=== PATIENT | female | born 1940 | race Caucasian/White ===

== ENCOUNTER 2017-07-04 07:17 | Inpatient (IN) | payer MEDICARE ==
[~2017-07-04] VITALS: Ht 167.6 cm; Wt 52.6 kg
[2017-07-04] VITALS (14 sets, daily range): BP systolic 70–100; BP diastolic 29–60; PULSE 60–82; RESP 14–18; O2SAT 95–100
[~2017-07-04 07:17] MED LIST: MULT-64 PO
--- NOTE | 2017-07-04 07:26 | ED.REPORT ---
HPI-General Illness Date of Service Jul 04, 2017 ED Provider: Kinsey Hernandez Patient is a 76 year old female with a hx of pansensitive Escherichia coli UTI diagnosed June 23 treated with Septra with complete resolution of symptoms. Presents to the ED complaining of hematuria onset last night. Associated symptoms include generalized weakness. Per , she is not experiencing increased confusion, fever, abdominal pain, back pain, or any other symptoms. She denies dizziness. She was seen at last night and placed on Septra again. Her urine dip had trace leukocytes, proteins, and some blood but was nitrite negative. Patient takes 325 mg ASA daily. Nursing Notes Stated Complaint: BLOOD IN URINE Chief Complaint: General Complaint Nursing Notes Reviewed: Yes Allergies: Coded Allergies: Pork (Verified Allergy, Unknown, 07/04/17) banana (Verified Allergy, Unknown, 07/04/17) peanut (Verified Allergy, Unknown, 07/04/17) shellfish derived (Verified Allergy, Unknown, 07/04/17) tree nut (Verified Allergy, Unknown, 07/04/17) wheat (Verified Allergy, Unknown, 07/04/17) Scheduled Aspirin (Aspirin) 325 Mg Tablet 325 MG PO DAILY Bifidobacterium Infantis (Digestive Probiotic) 1 Each Capsule 1 EACH PO DAILY Multivits-Min/FA/Lycopene/Lut (Centrum Silver Tablet) 1 Each Tablet 1 EACH PO DAILY Sulfamethoxazole/Trimeth 800-160 mg (Bactrim DS) 1 Each Tablet 1 EACH PO BID x 7 days General Time Seen by MD: 07:25 Chief Complaint Other (Hematuria ) Hx Obtained From: Patient, Spouse Arrived By: Walk-in Sudden in Onset?: Yes Onset Occurred: Yesterday Symptom Duration: Since onset Severity: Current: No pain currently Severity: Maximum: No pain Recent Healthcare: Recent doctor visit Similar Sx Previous: Yes Past Medical History Past Medical History Recent UTI Past Surgical History Bladder cyst removal herniated lumbar disc repair angioplasty bilat legs Smoking History Former Smoker, Smoker Current Status UNK Social History Other Social History: Ambulatory Status Independent Review of Systems +hypotensive Full Review of Systems Constitutional: Reports: Weakness - generalized, Denies: Fever Respiratory: Denies: Shortness of breath GI: Denies: Abdominal pain Female: Reports: Hematuria Musculoskeletal: Denies: Back pain Skin: Reports Diaphoresis Neurologic: Denies: Confusion, Dizziness Complete sys rev & neg: except as marked. Physical Exam Vital Signs Vital Signs Date Time Temp Pulse Resp B/P Pulse Ox O2 Delivery O2 Flow Rate FiO2 07/04/17 11:30 73 17 83/44 97 Room Air 07/04/17 10:30 69 16 99 Room Air 07/04/17 10:00 78 17 100 Room Air 07/04/17 09:30 82 18 70/29 100 Room Air 07/04/17 09:00 74 17 88/58 100 Room Air 07/04/17 08:30 74 16 82/38 100 Room Air 07/04/17 08:15 73 17 88/55 100 Room Air 07/04/17 08:00 70 16 83/56 100 Room Air 07/04/17 07:45 69 18 100/45 100 Room Air 07/04/17 07:25 36.0 60 16 86/60 95 Room Air Initial VS: Reviewed, Vital signs abnormal Head / Eyes: Atraumatic, Normocephalic Neck: Full range of motion Skin: Warm, Dry Neurologic: Alert, Oriented, Nonfocal General/Constitutional: Awake, Alert, No acute distress Respiratory / Chest: Atraumatic, Breath sounds NL, Breath sounds = bilat, No respiratory distress Cardiovascular: Heart rate NL, Regular rhythm, Heart sounds NL Abdomen: Atraumatic, Soft Lower abdominal guarding with some suprapubic fullness post-void Back: No CVA tenderness Female Genitourinary: Sales Representative Business Courses present Interpretation & Diagnostics Interpretation & Diagnostics: Acute anemia. Comparison is 2009 with a hematocrit at 42. Lab Results Interpretation Result Diagram: 07/04/17 1345 07/04/17 0744 Test 07/04/17 07:40 07/04/17 07:44 Prothrombin Time 13.6sec (8.1-12.5) Prothromb Time International Ratio 1.26ratio White Blood Count 7.5th/mm3 (3.8-10.1) Red Blood Count 3.48mil/mm3 (3.90-5.20) Mean Corpuscular Volume 88.8fL (81-100) Mean Corpuscular Hemoglobin 29.3pg (27.0-35.0) Mean Corpuscular Hemoglobin Concent 33.0% (32.0-37.0) Red Cell Distribution Width 14.0% (12.3-15.4) Platelet Count 242bil/L (150-400) Neutrophils (%) (Auto) 72.4% (40-74) Lymphocytes (%) (Auto) 18.7% (14-46) Monocytes (%) (Auto) 7.4% (4-12) Eosinophils (%) (Auto) 0.7% (0-5) Basophils (%) (Auto) 0.7% (0-3) Sodium Level 136mEq/L (134-144) Potassium Level 4.4mEq/L (3.5-5.2) Chloride Level 100mEq/L (97-108) Carbon Dioxide Level 19mmol/L (18-29) Blood Urea Nitrogen 11mg/dL (8-27) Creatinine 0.75mg/dL (0.57-1.00) Estimat Glomerular Filtration Rate 107mL/min (>59) Glucose Level 146mg/dL (60-99) Calcium Level 9.6mg/dL (8.5-10.1) Phosphorus Level 3.2mg/dL (2.5-4.9) Magnesium Level 1.8mg/dL (1.6-2.6) Total Bilirubin 0.5mg/dL (0.0-1.2) Aspartate Amino Transf (AST/SGOT) 45U/L (0-50) Alanine Aminotransferase (ALT/SGPT) 44U/L (0-32) Alkaline Phosphatase 123U/L (25-165) Troponin T 0.010ug/L (0.0-0.011) Total Protein 6.2g/dL (6.4-8.4) Albumin 3.8g/dL (3.4-5.0) Procalcitonin 0.03ng/mL (0.00-0.08) ECG Interpretation ECG Interpretation: Sinus rate 65 Probable L atrial enlargement Incomplete RBBB No ischemia Time: 07:50 Interpreted by: ED physician CT Abd / Pelvis Interpretation IMPRESSION: Large heterogeneous bladder mass which could represent hematoma however there is superimposed left posterior focus of increased attenuation which is suspicious for enhancing bladder wall mass/malignancy. Recommend further evaluation with cystoscopy. Minimal intrahepatic bile duct dilatation. Please correlate clinically with LFTs. Cholelithiasis. Numerous subcentimeter pancreatic cystic foci, not well evaluated by CT. Recommend further evaluation with dedicated pancreatic protocol MRI after the patient's acute episode has resolved Cystic focus in the right adnexa although this is adjacent to the bladder. Unclear if this represents bladder diverticulum versus right ovarian cystic lesion. Further assessment with pelvic ultrasound in the nonemergent setting could be performed. Dictated by: Ki Mcmullen M.D. on 07/04/2017 10:48 Approved by: Ki Mcmullen M.D. on 07/04/2017 at 11:03 Study type: Abdominal CT IV contrast, Abdom CT oral contrast Interpretation / Wet Read by: Interpret - Radiologist Procedures Ramos Catheter Physician placed difficult catheter. Time: 08:35 Procedure Performed by: ED physician Consent / Setup / Site Prep: Consent from patient, Hand hygiene observed, Standard Ramos site prep Insertion / Complications: Insertion successful Re-Eval/Medical Decision Med Decision/Clinical Course Presents with recurrent UTI symptoms for about 24 hours hematuria developing last night. Today with gross hematuria, blood is clearly coming from her bladder. Hypotensive dizzy orthostatic when standing up. Has responded nicely to the first 2 L of fluid. Concern for developing sepsis. Antibiotics started immediately in the ER. She was started on Septra again with the first dose last night. This is expanded to include ceftriaxone in the ER today. Urinalysis from June 23 shows a pansensitive Escherichia coli. On physical exam she's got supraumbilical fullness with the suggestion of a mass. CT scan of the abdomen and pelvis with contrast will be ordered to further evaluate this. The dramatic amount of hematuria is not consistent with a simple UTI in a non-anticoagulated person. CT scan consistent with concerns for bladder neoplasm. Urology has been consulted. Findings have been shared with patient. She continues to drain significant bloody urine from her catheter. Blood pressures continue to remain low. Will recheck H&H and likely will benefit from transfusion with evidence of ongoing bleeding at this point Time of Eval: 08:20 Re-Evaluation/Progress Note: Rechecked pt who has bled onto the floor. Performed exam with electronics repair technician present. Time of Eval: 09:15 Re-Evaluation/Progress Note: After 2 L, pt systolic is at 105. She has been alert and talking throughout her stay in the ED. Time of Eval: 13:23 Re-Evaluation/Progress Note: Discussed code status. Pt is DNR. Discussed imaging results and plan for admission. Patient understands and agrees with plan. All questions addressed at this time. Pt is still significantly hypotensive with a BP of 85 while laying down. She is still alert. Consultation #1: Referral / Consult Name: Solitario Chan MD Consulted With: Hospitalist Call Returned at: 12:41 Note: Discussed pt's case. Accepts admit. Consultation #2: Referral / Consult Name: Brando Garsia MD Consulted With: Urology Call Returned at: 13:14 Note: Discussed pt's case. Agrees to consult. Counseled Regarding: Diagnosis, Lab results, Need for admission Discharge & Departure Primary Impression: Sepsis Sepsis type: sepsis due to unspecified organism Qualified Code: A41.9 - Sepsis, unspecified organism Additional Impressions: Anemia due to acute blood loss Hematuria UTI (urinary tract infection) Urinary tract infection type: site unspecified Hematuria presence: with hematuria Qualified Code: N39.0 - Urinary tract infection, site not specified Bladder mass Disposition: ADMITTED TO HOSPITAL Discharge Condition All VS Reviewed: Yes Condition: Stable Referrals: Mandy Del Toro Attestation Portions of this note were transcribed by Evan Wolfe. I, Dr. Hernandez personally performed the history, physical exam and medical decision-making; I reviewed and confirmed the accuracy of the information in the transcribed note. Signed by: Dre Luna, 07/04/17 copies to: Mandy Del Toro Shawna L MD Jul 04, 2017 07:26 EVAN WOLFE Jul 04, 2017 07:36
[2017-07-04] MEDS ORDERED: 0.9% Sodium Chloride 1,000 ML IV ONE ×3 (07:38→09:30)
[2017-07-04] MEDS ORDERED: cefTRIAXone Inj 2,000 MG in Dextrose 5% Minibag Plus 50 ML IV ONE (07:40)
[2017-07-04 08:22] LABS: TROPONIN T 0.01 ug/L (0.0-0.011)
[2017-07-04 09:03] LABS: BASOPHILS % (AUTO) 0.7 % (0-3); EOSINOPHILS % (AUTO) 0.7 % (0-5); MONOCYTES % (AUTO) 7.4 % (4-12); Mean Corpuscular Hemoglobin 29.3 pg (27.0-35.0); Mean Corpuscular Volume 88.8 fL (81-100); NEUTROPHILS % (AUTO) 72.4 % (40-74); Platelet Count 242 bil/L (150-400)
[2017-07-04] MEDS ORDERED: Iohexol 300 mg/mL 30 mL Inj PO ONE (09:20)
--- NOTE | 2017-07-04 12:05 | DRSVH ---
PROCEDURE: CT ABDOMEN AND PELVIS WITH CONTRAST ([id number]) INDICATIONS: belly pain and gross hematuria TECHNIQUE: After the administration of oral and intravenous contrast, 5 mm thick sections acquired from the diap hragms to the symphysis. 5 mm thick coronal and sagittal reformats were performed. For radiation do se reduction, the following was used: automated exposure control, adjustment of mA and/or kV accordi ng to patient size. COMPARISON: None. FINDINGS: Image quality: Excellent. ABDOMEN: Lung bases: Lung bases are clear. Heart size is normal. Solid organs: There is minimal intrahepatic bile dilatation. Otherwise liver and spleen are normal in size and enhancement. Gallbladder contains numerous small gallstones however no definite gallbladde r wall thickening or pericholecystic inflammation.. Extra hepatic bile ductal system is non-dilated. Pancreas and just numerous subcentimeter cystic foci, not well visualized, and unclear if these can make it with the ductal system. Further assessment with MRI could be performed. No adrenal nodules. Kidneys are normal in size and enhancement, without hydronephrosis. Peritoneum and bowel: Stomach, small bowel, and colon loops are normal in caliber and wall thickness . No free fluid or air. Nodes and vessels: No retroperitoneal or mesenteric adenopathy. Mild ectasia of the infrarenal abdom inal aorta measuring 2.6 cm. Scattered atheromatous calcifications are present. Miscellaneous: No ventral hernias. PELVIS: Genitourinary: Ramos catheter is present. Within the lumen the bladder there is a large heterogeneous mass surrounding the Ramos balloon, probably hematoma this measures 9 point 4 x 4 0.0 cm in cross-se ctional dimension on axial image 68 series 2. More superiorly, there is a possible enhancing left pos terior bladder wall mass which measures 3.0 x 2.1 cm. Miscellaneous: No inguinal hernias or adenopathy. There is an ovoid cystic water attenuation focus in the right adnexal region measuring 2.8 x 2.2 cm, which is of unclear etiology however possibly geena dder diverticulum versus right ovarian cystic lesion. Bones: Age-indeterminate anterior wedging of T12. There is diffuse disc degeneration and facet arthro norma. IMPRESSION: Large heterogeneous bladder mass which could represent hematoma however there is superimposed left po sterior focus of increased attenuation which is suspicious for enhancing bladder wall mass/malignancy . Recommend further evaluation with cystoscopy. Minimal intrahepatic bile duct dilatation. Please correlate clinically with LFTs. Cholelithiasis. Numerous subcentimeter pancreatic cystic foci, not well evaluated by CT. Recommend further evaluation with dedicated pancreatic protocol MRI after the patient's acute episode has resolved Cystic focus in the right adnexa although this is adjacent to the bladder. Unclear if this represents bladder diverticulum versus right ovarian cystic lesion. Further assessment with pelvic ultrasound i n the nonemergent setting could be performed. Dictated by: Ki Mcmullen M.D. on 07/04/2017 10:48 Approved by: Ki Mcmullen M.D. on 07/04/2017 at 11:03
[2017-07-04] MEDS ORDERED: 0.9% Sodium Chloride 1,000 ML IV SCH (13:16)
[2017-07-04] MEDS ORDERED: Polyethylene Glycol (PEG) 17 Gm Powder PO PRN (13:20)
[2017-07-04] MEDS ORDERED: Alum-Mag Hydrox-Simeth 30 mL Suspension PO PRN (13:20)
[2017-07-04] MEDS ORDERED: BIFI1CAP PO (13:33)
[2017-07-04] MEDS ORDERED: ASPI325T32 PO (13:33)
[2017-07-04] MEDS ORDERED: MULT-1073 PO (13:33)
[2017-07-04 13:41] LABS: INR 1.26 ratio
[2017-07-04] MEDS ORDERED: SULF1TAB7 PO (14:02)
[2017-07-04 14:37] LABS: Magnesium 1.8 mg/dL (1.6-2.6); Phosphorus 3.2 mg/dL (2.5-4.9)
--- NOTE | 2017-07-04 15:47 | PCM.HPMED ---
Subjective Date of Service Jul 04, 2017 Primary Provider: Admitting Physician: Brando Garsia MD Primary Care Physician: Petros Tidwell MD Attending Physician: Brando Garsia MD Chief Complaint: bloody urine History of Present Illness: Yolanda Sanderson is a 76yoF with past medical history of tobacco dependence and peripheral arterial disease who arrived in the ED with a 2 week history of hematuria that began two weeks ago but has acutely worsened the last 2 days. The patient states that two weeks ago she had on onset of hematuria and went to the urgent care clinic where she was told her she had a UTI and was given TMP+ SMX. After finishing her antibiotics she states that she had significant improvement in her hematuria until yesterday (07/04/17) when her urine became frankly bloodly which then triggered her to then return to the clinic where they gave her another supply of TMP+SMX. The patient also has developed lower abdominal pain described as sharp and achy and rated at 3-4 out of 10 at its worst. The patient states that she has experience no increase in pain with urination. The patient had a cyst removed from her bladder twenty years ago without recurrence. The patient also has a smoking history of 51 years. The patient admits to intermittent diarrhea and constipation for the past few months. The denies fever or chills, night sweats, chest pain, shortness of breath, worsening headaches. The patient denies significant weight loss recently. Review of Systems: Comprehensive review of systems was obtained and all are negative except what is included in the history of present illness. Allergies Coded Allergies: Pork (Verified Allergy, Unknown, 07/04/17) banana (Verified Allergy, Unknown, 07/04/17) peanut (Verified Allergy, Unknown, 07/04/17) shellfish derived (Verified Allergy, Unknown, 07/04/17) tree nut (Verified Allergy, Unknown, 07/04/17) wheat (Verified Allergy, Unknown, 07/04/17) Home Medications aspirin 325mg daily TMP-SMX probiotics PMH Peripheral arterial disease Cataracts in right eye Tobacco Dependence Anxiety Surgical History Bladder cyst removal in herniated lumbar disc repair in angioplasty bilateral legs at [facility] in 1999s Family History Mother with CAD/MD in 50s 2 Sisters with coronary artery disease in 70s Father at 83 from auto v pedestrian accident Social History 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 Hx Alcohol Use: No Hx Substance Use: No Hx Tobacco Use: Yes Smoking Status: Current Every Day Smoker Years of Smokin Living Arrangement: with Family Exam Vital Signs Vital Sign - Last Date Time Temp Pulse Resp B/P Pulse Ox O2 Delivery O2 Flow Rate FiO2 07/04/17 14:37 36.4 61 92/54 96 Room Air 07/04/17 13:56 17 Exam General: Elderly female appearing in mild distress due to abdominal discomfort Eyes: Pupils equal round and reactive to light, extraocular motion intact, anicteric sclera, noninjected conjunctiva HENT: Normocephalic atraumatic, moist mucous membranes without central cyanosis , oropharynx clear without purulent exudate or cobblestoning mucosa Neck: Supple, trachea midline, without thyromegaly or JVD Cardiovascular: Regular rate and regular rhythm, S1-S2 present, without murmurs rubs or gallops noted Lungs: Clear to auscultation bilaterally without wheezing rales or rhonchi Abdomen: Soft, tender in suprapubic region with noted large mass palpable in her bladder, nondistended, tympanic to percussion, hyper active bowel sounds, without organomegaly Extremities: No cyanosis clubbing or edema noted, pulses intact bilaterally at dorsalis pedis and radial : Ramos catheter in place with gross hematuria and the tubing Skin: Warm and dry, pale Neuro: Nonfocal neurologic exam, able to move all extremities spontaneously Psych: Anxious mood and flat affect, alert and cooperative Lab and Diagnostics Result Diagram: 07/04/17 1345 07/04/17 0744 X-Rays, CTs and MRIs CT ABDOMEN AND PELVIS WITH CONTRAST IMPRESSION: Large heterogeneous bladder mass which could represent hematoma however there is superimposed left posterior focus of increased attenuation which is suspicious for enhancing bladder wall mass/malignancy. Recommend further evaluation with cystoscopy. Minimal intrahepatic bile duct dilatation. Please correlate clinically with LFTs. Cholelithiasis. Numerous subcentimeter pancreatic cystic foci, not well evaluated by CT. Recommend further evaluation with dedicated pancreatic protocol MRI after the patient's acute episode has resolved Cystic focus in the right adnexa although this is adjacent to the bladder. Unclear if this represents bladder diverticulum versus right ovarian cystic lesion. Further assessment with pelvic ultrasound in the nonemergent setting could be performed. Approved by: Ki Mcmullen M.D. on 07/04/2017 at 11:03 Assessment & Plan Yolanda Sanderson is a 76yoF with past medical history of tobacco dependence and peripheral arterial disease who arrived in the ED with a 2 week history of hematuria that began two weeks ago but has acutely worsened the last 2 days. Acute hematuria with Acute blood loss anemia secondary to urinary tract infection - White blood cell count of 7.5 with no shift, temperature of 36 on admission, pro-calcitonin 0.03 not consistent with overt sepsis - Records from urgent care clinic note the patient was tested for possible UTI with culture resulting in pansensitive Escherichia coli placed on Bactrim DS - Patient was started on Rocephin in the ED - Continue Rocephin 2000 mg daily - Urology was consulted in the ED. This case was discussed extensively with Dr. Garsia who will see the patient later today. No plans currently for cystoscopy at this time. - Ramos irrigation via to way Ramos with 60 mL liter syringe until Ramos runs clear Q 2 to 3 hours while awake, and Q4-6 hours while sleep - Hemoglobin dropped from 10.2 to 8.6 in the ED over several hours Patient will be typed and screened - Hemoglobin and hematocrit checked every 4 hours - Patient typed and screened in ED, currently holding 2 units PRBCs, transfusion threshold is with hemoglobin less than 8 given history of peripheral arterial disease and family history of coronary artery disease Acute hypotension secondary to acute blood loss anemia - Patient's blood pressure on presentation was 70/29 which improved to 92/54 with 2 L of normal saline IV fluids given in the ED - Patient had lactic acid of 2.9 which corrected with fluids to 1.2 over 7 hours while in the ED this is likely secondary to poor perfusion due to hypotension more so than sepsis - Patient to be continued on LR at 100 mils per hour given no history of CHF - Transfusion protocol described above secondary to acute blood loss anemia Acute bladder mass noted on CT imaging - Patient has a 50 year history of tobacco dependence but does not carry any history of familial cancer - Imaging shows some contrast enhancement which could be consistent with possible mass - Given gross hematuria with significant blood loss from a simple urinary tract infection this is likely a mass with friable overlying tissue - Urology was consulted and Dr. Garsia will follow, recommendations described above, likely cystoscopy as an outpatient Tobacco dependency - Nicotine patch available when necessary DVT prophylaxis: Anticoagulation is contraindicated given gross hematuria and acute blood loss anemia GI prophylaxis: None indicated CODE STATUS is DNR/DNI this was discussed with patient's daughter in the room as well as the patient directly Given the presenting symptoms, likely diagnosis, possible complications, and required treatments expected length of stay is greater than 2 midnights. Pain Evaluation: Adequate Pain Control GI Prophylaxis: Not indicated VTE Mechanical Devices: Intermittant Pneumatic CD Resuscitation Status: DNR/DNI:Do Not Resuscitate/Intubate Attending Statement The patient was seen and examined together with Dr. Colon on 07/04/2017 and I agree with the history, exam and plan as outlined in the note above. . copies to: Mandy Del Toro Nicholas K DO Jul 04, 2017 15:47 Solitario Chan MD Jul 05, 2017 07:55
[2017-07-04] MEDS: Sodium Chloride LOK Flush 10 mL Syringe IVFLUSH SCH (16:02)
[2017-07-04] MEDS: [UNRECOGNIZED DRUG - OTHER] PO SCH (16:30)
[2017-07-04] MEDS: Lactated Ringer's 1,000 ML IV SCH (16:44)
[2017-07-04] MEDS ORDERED: Phenazopyridine 97.5 mg Tablet PO PRN (18:30)
[2017-07-04] MEDS: HYDROmorphone 0.5 mg/0.5 mL iSecure Syringe IVPUSH PRN (18:41)
--- NOTE | 2017-07-04 19:11 | NUR ---
Admit/Pain/Barrios The pt was admitted to [facility]29 from the ED this afternoon. Report received from Angelina BOWERS. The pt continues to experience acute pain related to bladder spasm and acute bleeding from the bladder. IV dilaudid and IV versed do give adequate pain management, with IV dilaudid being the nursing first choice. The pt is on a continuous pulse ox with O2 management at the bedside if needed. H&H's continue to fall - MD's aware. 2 units of PRBC's available. Americo red blood continues to drain into the barrios, with 2 60mL bladder irrigations performed - MD's aware and following. The pt is drowsy, but oriented with VSS.
[2017-07-04] MEDS: Ondansetron 2 mg/mL 2 mL Inj IVPUSH PRN (19:30)
[2017-07-04 21:06] LABS: APPEARANCE,URINE TURBID (CLEAR,HAZY); COLOR,URINE BLOODY (YELLOW)
[2017-07-04 21:07] LABS: OCCULT BLOOD,URINE LARGE (NEGATIVE); UROBILINOGEN,URINE NORMAL (NORMAL)
--- NOTE | 2017-07-04 21:28 | NUR ---
MATHEUS BLUE irrigated with 7 500ml NS bottles, porsche red blood output. Pt on continuous irrigation with pink/red tinged output.
--- NOTE | 2017-07-04 23:28 | CONS ---
[address] [address] CONSULTATION REPORT PATIENT: TRACI RO : 1940 MR#: [id number] ADMIT: 07/04/2017 JOB ID: [id number] DATE OF SERVICE: 07/04/2017 CHIEF COMPLAINT: Gross hematuria. HISTORY OF PRESENT ILLNESS: I was asked by ED, Dr. Kinsey Hernandez, to evaluate this 76-year-old female for gross hematuria. The patient went to urgent care June 23, 2017 for UTI and was treated with Bactrim for seven days. The patient went to urgent care yesterday for UTI and was started on a course of Bactrim. The patient states she started having gross hematuria approximately two weeks ago with gross hematuria resolving and then with gross hematuria recurring yesterday evening. The patient presented to the emergency department this morning and was found to have mild hypotension with blood pressure 86/60. The patient was given IV fluid hydration and given ceftriaxone 2 g IV. The patient was admitted by hospitalist, Dr. Jorge Colon. Of note, patient is DO NOT RESUSCITATE. The patient states that prior to presentation to the emergency department this morning, the patient was having weakness with no dizziness with no back, flank or abdominal pain. No fever or chills. The patient is on aspirin at home. The patient had an 18-Swiss Ramos catheter placed by Dr. Hernandez this morning with Ramos catheter seen to subsequently drain bloody urine drainage. The patient had a CT scan of abdomen and pelvis with IV contrast today showing no hydronephrosis, no renal masses, no lymphadenopathy, Ramos catheter in bladder, likely blood clots in the bladder, possible bladder mass with my review also showing nonobstructing small bilateral renal calculi with two left renal calculi with the largest calculus on the left approximately 4-5 mm with one right renal calculus approximately 3-4 mm. The patient admitted by hospitalist, Dr. Jorge Colon and was continued IV fluid hydration and ceftriaxone. Ramos catheter was irrigated by nursing staff for some clots. The patient presently reports suprapubic pain and distention. No back or flank pain. The patient states that prior to presentation to the emergency department this morning she was having urinary frequency and urgency, as well as gross hematuria. The patient states she had surgery for removal of a bladder cyst or bladder tumor approximately 20 years ago. The patient reports no nausea, no vomiting until she developed nausea after receiving a dose of Dilaudid IV shortly prior to my seeing the patient. The patient presently reports suprapubic pain and suprapubic distention. PAST MEDICAL/SURGICAL HISTORY: UTI, surgery for removal of bladder cyst or bladder tumor, herniated lumbar disc repair, bilateral lower extremity angioplasty, peripheral arterial disease, DNR, cataracts, anxiety. PAST HISTORY MEDICATIONS: Home medications: Aspirin, Bactrim, probiotics. PRESENT HOSPITAL MEDICATIONS: Ceftriaxone, Dilaudid IV p.r.n., Toradol IV p.r.n., morphine sulfate IV p.r.n., Ultram p.r.n., Maalox p.r.n., Zofran p.r.n., Senokot p.r.n., MiraLAX p.r.n. ALLERGIES: To pork, banana, peanut, shellfish, tree nuts, wheat. SOCIAL HISTORY: A 50 year smoking history. No alcohol use. No drug use. FAMILY HISTORY: Noncontributory. REVIEW OF SYSTEMS: Constitutional: No fever, no chills. GI: No nausea, no vomiting except for nausea after receiving dose of Dilaudid IV. PHYSICAL EXAMINATION: Vital signs on presentation to the emergency department at 7:25 a.m. today: Afebrile, temperature 36.0 degrees Celsius, heart rate 60, respiratory rate 16, BP 86/60, O2 sat 95% on room air. The patient has been afebrile since presentation to the emergency department. Vital signs presently: Temperature 36.4 degrees Celsius, heart rate 61, BP 92/54, O2 sat 96% on room air. General: Well-developed, well-nourished elderly female, in no acute distress. HEENT exam: Head normocephalic, atraumatic. Eyes: Extraocular muscles intact. Neck is supple. Chest: No use of accessory muscles. Nonlabored respirations. No retractions. Abdomen: Moderate suprapubic distention and suprapubic tenderness. Soft. Moderate suprapubic distention. Moderate suprapubic tenderness. No rebound. No guarding. Back: No costovertebral angle tenderness. Skin: Warm and dry. Neurologic examination: Sensation grossly intact to touch. Normal speech. Psych exam: Alert and oriented x3. Normal mood and affect. exam: 18-Swiss Ramos catheter in place draining bloody urine. Ramos catheter urine output 1850 mL of urine output during the last 8 hour shift. LABORATORIES: Laboratories this morning, white blood cell count 7.5, hematocrit 30.9, platelets 242, sodium 136, potassium 4.4, chloride 100, CO2 19, BUN 11, creatinine 0.75, glucose 146, lactic acid elevated at 2.9, glucose 146, PT 13.6, INR 1.26 and then at 1:45 p.m. today hematocrit 26.5. At 5:36 p.m. today hematocrit 25.5. At 2:34 p.m. today lactic acid 1.2 which is normal. Microbiology: Blood cultures pending from today. On June 23, 2017, urine culture showed greater than 100,000 E, coli sensitive to ceftriaxone, Cipro and Bactrim. Imaging: CT scan as per HPI. BEDSIDE PROCEDURE NOTE: Ramos catheter was irrigated with difficulty for a small number of clots with approximately 300 mL of sterile solution used for irrigation of the bladder secondary to difficulty irrigating the Ramos catheter. The decision was made to change the Ramos catheter. Ramos catheter was removed. The patient was prepped and draped in standard sterile fashion. A 24-Swiss three-way hematuria Ramos catheter was placed through the urethra and into the bladder without difficulty without difficulty. The Ramos catheter was seen to drain a large amount of bloody urine. Ramos catheter balloon was inflated with 20 mL of sterile water. The bladder was irrigated via the Ramos catheter with approximately 3000 mL of sterile solution for a large very large number of large clots. The Ramos catheter was seen to drain light pink drainage. The Ramos catheter was placed to continuous bladder irrigation on a blood-tinged light blood-tinged drainage on moderate rate of continuous bladder irrigation. Ramos catheter was left to continuous bladder irrigation. The patient tolerated the procedure well. ASSESSMENT: Gross hematuria with urinary tract infection and sepsis with gross hematuria secondary to urinary tract infection and possible bladder tumor, status post Ramos catheter change to a 24-Swiss hematuria three-way Ramos catheter and status post bladder irrigation via the Ramos catheter at the bedside this evening for a very large number of large blood clots with improved gross hematuria after bladder irrigation. Anticipate the gross hematuria should improve with continuous bladder irrigation and treatment of the urinary tract infection. PLAN: Agree with broad-spectrum IV antibiotics with ceftriaxone. Agree with IV fluid hydration. Recommend holding blood thinning medications and will stop the Toradol order. Ditropan p.r.n. and Pyridium p.r.n. have been ordered. Recommend Ramos catheter to continuous bladder irrigation and irrigating the Ramos catheter p.r.n. blood clots, nondraining Ramos, or bloody drainage from the Ramos. Recommend following laboratories including white blood cell count, hematocrit, creatinine and electrolytes. Will defer whether the patient needs to receive a blood transfusion. Hospitalist seen. Recommend checking urinalysis and urine culture and urinalysis and urine culture have been sent from the new Ramos catheter. Recommend following up on culture results. Will plan for cystoscopy in the future after her infection has completely cleared. Plan was discussed with the patient and her daughter and her granddaughter who are at the bedside. Will re-evaluate the patient tomorrow.
[2017-07-05] VITALS (13 sets, daily range): BP systolic 71–110; BP diastolic 40–57; PULSE 59–91; RESP 12–22; O2SAT 94–98
[2017-07-05] MEDS: Sodium Chloride LOK Flush 10 mL Syringe IVFLUSH SCH ×4 (00:18→23:46)
[2017-07-05] MEDS: Lactated Ringer's 1,000 ML IV SCH (02:15)
[2017-07-05 03:39] LABS: Mean Corpuscular Hemoglobin 29.2 pg (27.0-35.0); Mean Corpuscular Volume 90.8 fL (81-100)
[2017-07-05 03:59] LABS: INR 1.37 ratio
[2017-07-05 04:11] LABS: Magnesium 1.6 mg/dL (1.6-2.6)
[2017-07-05] MEDS ORDERED: 0.9% Sodium Chloride 250 ML IV ONE (04:25)
--- NOTE | 2017-07-05 05:46 | NUR ---
TRANSFUSION Pt had an H&H of 7.6 / 23.6, 2 units PRBC ordered. Pt hypotensive before transfusion with BP 77/42. Pt currently normotensive, VSS and denies pain @ this time.
[2017-07-05] MEDS: Ondansetron 2 mg/mL 2 mL Inj IVPUSH PRN ×2 (08:20→19:47)
[2017-07-05] MEDS: [UNRECOGNIZED DRUG - OTHER] PO SCH (08:30)
[2017-07-05] MEDS: cefTRIAXone Inj 2,000 MG in Dextrose 5% Minibag Plus 50 ML IV SCH (11:59)
--- NOTE | 2017-07-05 12:46 | NUR ---
Bladder irrigation/blood transfusion pt alert and oriented. denies pain or discomfort. pt tolerated blood transfusion without reactions. continuous bladder irrigation per md orders.
--- NOTE | 2017-07-05 15:31 | PCM.PNMED ---
Subjective Date of Service Jul 05, 2017 Nancy Sanderson is a 76yoF with past medical history of tobacco dependence and peripheral arterial disease who arrived in the ED with a 2 week history of hematuria but has worsened over the past 2 days prior to admission. Patient notes that she feels better today. She appears to have some dementia at baseline. She states that she could not remember Dr. Garsia, the urologist coming and doing a bladder irrigation via barrios in the evening. Overnight, patient's hemoglobin dropped to 7.6 and she received 2 units of PRBcs. On ROS, patient reports anxiety, nausea, and vomiting. She states that her abdominal pain has resolved. She continues to have blood in her urine. She denies visual changes, headaches, chest pain and SOB. Exam Vital Signs Vital Sign - Last Date Time Temp Pulse Resp B/P Pulse Ox O2 Delivery O2 Flow Rate FiO2 07/05/17 11:00 36.3 82 16 84/52 07/05/17 04:47 97 Room Air Intake and Output 07/04/17 07/04/17 07/05/17 Cumulative From/Thru 15:00 23:00 07:00 07/04/17 07:25 - 07/05/17 06:24 Intake Total 2000 ml 101 ml 945 ml 3046 ml Output Total 1850 ml 900 ml 2750 ml Balance 150 ml 101 ml 45 ml 296 ml Intake IV Total 2000 ml 101 ml 945 ml 3046 ml Output Urine Total 1850 ml 900 ml 2750 ml Exam General: Patient is lying comfortably on bed, AAOX3, not in acute distress, cooperative and pleasant. HEENT: head normocephalic and atraumatic, PERRLA, EOMI, no scleral icterus, noninjected conjunctiva Neck: neck supple, non-tender, no lymphadenopathy, trachea midline, no JVD CV: regular rate and rhythm, s1 and s2 heard, radial pulses 2+ and equal bilaterally, no rubs, murmurs or gallops, no edema Lungs: Clear to auscultation bilaterally, no wheezes, rales or rhonchi, no increased work of breathing Abdomen: normoactive bowel sounds on 4Q, soft, non-distended, non-tender to palpation, large palpable mass below the umbilicus Skin: warm and dry, : barrios catheter in place, with visible gross hematuria Musculoskeletal: 5/5 UE and LE strength bilaterally, full ROM bilaterally Neuro: Grossly neurologically intact, cranial nerves II through XII intact, no dyskinesia, dysmetria, or dysdiadochokinesia noted Psych: Normal mood and affect, appears to have some dementia at baseline IVs and Medications Medications Reviewed: Medications were reviewed in detail Medications High-risk medications include Versed Lab and Diagnostics Laboratory Tests Test 07/04/17 16:24 07/04/17 17:36 07/04/17 20:44 07/05/17 00:15 Hold Humphries Top Tube Received (Received) Received (Received) Hemoglobin 8.3g/dL (12.0-15.6) 8.1g/dL (12.0-15.6) Hematocrit 25.5% (35.0-46.0) 25.1% (35.0-46.0) Urine Color Bloody (YELLOW) Urine Appearance Turbid (CLEAR,HAZY) Urine pH 7.0 (5.0-8.0) Urine Specific [place] 1.020 (1.003-1.035) Urine Protein 300mg/dL (NEG,TRACE) Urine Glucose (UA) Negativemg/dL (NEGATIVE) Urine Ketones Tracemg/dL (NEGATIVE) Urine Occult Blood Large (NEGATIVE) Urine Nitrite (NEGATIVE) Urine Bilirubin Negative (NEGATIVE) Urine Urobilinogen Normalmg/dL (NORMAL) Urine Leukocyte Esterase Negative (NEGATIVE) Urine RBC >50/hpf (0-2) Urine WBC 6-10/hpf (0-5) Urine Epithelial Cells Occasional/hpf (NONE-MOD) Urine Crystals None seen (NONE SEEN) Urine Bacteria None/hpf (NONE-FEW) Urine Hyaline Casts None/lpf (NONE) Urine Granular Casts None seen (NONE SEEN) Urine Waxy Casts None seen (NONE SEEN) Urine Red Blood Cell Casts None seen (NONE SEEN) Urine White Blood Cell Casts None seen (NONE SEEN) Urine Mucus None seen (None Seen) Urine Trichomonas None seen (NONE SEEN) Urine Yeast None (NONE SEEN) Urinalysis Comment None Urine Culture Reflexed Indicated Test 07/05/17 03:25 07/05/17 12:39 White Blood Count 13.3th/mm3 (3.8-10.1) Red Blood Count 2.60mil/mm3 (3.90-5.20) Hemoglobin 7.6g/dL (12.0-15.6) 11.4g/dL (12.0-15.6) Hematocrit 23.6% (35.0-46.0) 33.5% (35.0-46.0) Mean Corpuscular Volume 90.8fL (81-100) Mean Corpuscular Hemoglobin 29.2pg (27.0-35.0) Mean Corpuscular Hemoglobin Concent 32.2% (32.0-37.0) Red Cell Distribution Width 14.2% (12.3-15.4) Platelet Count 185bil/L (150-400) Prothrombin Time 14.7sec (8.1-12.5) Prothromb Time International Ratio 1.37ratio Activated Partial Thromboplast Time 21.9sec (22.8-33.0) Sodium Level 140mEq/L (134-144) Potassium Level 4.9mEq/L (3.5-5.2) Chloride Level 109mEq/L (97-108) Carbon Dioxide Level 18mmol/L (18-29) Blood Urea Nitrogen 12mg/dL (8-27) Creatinine 0.62mg/dL (0.57-1.00) Estimat Glomerular Filtration Rate 133mL/min (>59) Glucose Level 100mg/dL (60-99) Calcium Level 8.6mg/dL (8.5-10.1) Magnesium Level 1.6mg/dL (1.6-2.6) Total Bilirubin 0.4mg/dL (0.0-1.2) Aspartate Amino Transf (AST/SGOT) 33U/L (0-50) Alanine Aminotransferase (ALT/SGPT) 30U/L (0-32) Alkaline Phosphatase 85U/L (25-165) Total Protein 4.6g/dL (6.4-8.4) Albumin 2.8g/dL (3.4-5.0) Procalcitonin 0.06ng/mL (0.00-0.08) Microbiology 07/04/17 Blood Culture - Preliminary, Resulted NO GROWTH AFTER 24 HOURS 07/04/17 Urine Culture - Preliminary, Resulted No growth to date Result Diagram: 07/05/17 9322 07/05/17 7079 X-Rays, CTs and MRIs CT ABDOMEN AND PELVIS WITH CONTRAST IMPRESSION: Large heterogeneous bladder mass which could represent hematoma however there is superimposed left posterior focus of increased attenuation which is suspicious for enhancing bladder wall mass/malignancy. Recommend further evaluation with cystoscopy. Minimal intrahepatic bile duct dilatation. Please correlate clinically with LFTs. Cholelithiasis. Numerous subcentimeter pancreatic cystic foci, not well evaluated by CT. Recommend further evaluation with dedicated pancreatic protocol MRI after the patient's acute episode has resolved Cystic focus in the right adnexa although this is adjacent to the bladder. Unclear if this represents bladder diverticulum versus right ovarian cystic lesion. Further assessment with pelvic ultrasound in the nonemergent setting could be performed. Approved by: Ki Mcmullen M.D. on 07/04/2017 at 11:03 Assessment & Plan Yolanda Sanderson is a 76yoF with past medical history of tobacco dependence and peripheral arterial disease who arrived in the ED with a 2 week history of hematuria that began two weeks ago but has acutely worsened the last 2 days prior to admission. Acute hematuria with Acute blood loss anemia secondary to urinary tract infection and possible bladder tumor - White blood cell count of 7.5 with no shift, temperature of 36 on admission, pro-calcitonin 0.03 not consistent with overt sepsis - Records from urgent care clinic note the patient was tested for possible UTI with culture resulting in pansensitive Escherichia coli placed on Bactrim DS - Patient was started on Rocephin in the ED - Continue Rocephin 2000 mg daily, Urine cultures pending - Urology was consulted in the ED. This case was discussed extensively with Dr. Garsia who initially saw patient on 07/04/17. Urology will continue to follow - Barrios irrigation via to way Barrios with 60 mL liter syringe until Barrios runs clear Q 2 to 3 hours while awake, and Q4-6 hours while sleep -Per Urology, Ditropan p.r.n. and Pyridium p.r.n. have been ordered. -Recommended Barrios catheter to continuous bladder irrigation and irrigating the Barrios catheter p.r.n. blood clots, nondraining Barrios, or bloody drainage from the Barrios -In addition, urology will do outpatient cystoscopy once infection has resolved - Hemoglobin dropped from 10.2 to 8.6 in the ED over several hours Patient was typed and screened -Overnight, patient received 2 units PRBcs - Hemoglobin and hematocrit checked every 4 hours - Patient typed and screened in ED, currently holding 2 units PRBCs, transfusion threshold is with hemoglobin less than 8 given history of peripheral arterial disease and family history of coronary artery disease Acute hypotension secondary to acute blood loss anemia - Patient's blood pressure on presentation was 70/29 which improved to 92/54 with 2 L of normal saline IV fluids given in the ED - Patient had lactic acid of 2.9 which corrected with fluids to 1.2 over 7 hours while in the ED this is likely secondary to poor perfusion due to hypotension more so than sepsis - Now discontinued LR at 100 mils per hour - Transfusion protocol described above secondary to acute blood loss anemia Acute bladder mass noted on CT imaging - Patient has a 50 year history of tobacco dependence but does not carry any history of familial cancer - Imaging shows some contrast enhancement which could be consistent with possible mass - Given gross hematuria with significant blood loss from a simple urinary tract infection this is likely a mass with friable overlying tissue - Urology was consulted and Dr. Garsia will follow, recommendations described above, likely cystoscopy as an outpatient Tobacco dependency - Nicotine patch available when necessary DVT prophylaxis: Anticoagulation is contraindicated given gross hematuria and acute blood loss anemia GI prophylaxis: None indicated CODE STATUS is DNR/DNI this was discussed with patient's daughter in the room as well as the patient directly Pain Evaluation: Adequate Pain Control GI Prophylaxis: Not indicated VTE Mechanical Devices: Intermittant Pneumatic CD Resuscitation Status: DNR/DNI:Do Not Resuscitate/Intubate Attending Statement The patient was seen and examined together with Dr. Huang on 07/05/2017 and I agree with the history, exam and plan as outlined in the note above. . Hoda Huang DO Jul 05, 2017 14:58 Solitario Chan MD Jul 07, 2017 07:46
--- NOTE | 2017-07-05 15:41 | NUR ---
Social Work: Initial Assessment/Multidisciplinary Rounds D: Per EMR review, pt is a 76 year old female admitted for Gross hematuria, sepsis, new bladder mass. Patient is Medicare insurance iwth no Supplement, LTC or VA benefits. ACTIVITIES DIRECTOR SCOUTING provided patient with information for the [facility] as patient is underinsured. PCP is listed as Petros Tidwell however patient states she does not have a current PCP and does not see Dr. Tidwell. She declined [facility] Appointment at this time. Advanced directives information provided to the patient as she cannot recall if she's done them or not. Readmit score not entered. Pt discussed in Multidisciplinary rounds. Capacity for self care discussed; no concerns or needs at this time. Pt was previously I at baseline. ACTIVITIES DIRECTOR SCOUTING met with the patient at bedside. Social work/dcp role explained, contact information and discharge planning checklist provided. See initial assessment. Pt lives in [place] with her spouse and was I with ADLs and used no DME. Pt has never had HH or skilled rehab. Patient lives in a single story home with 1 step to enter. ACTIVITIES DIRECTOR SCOUTING reviewed possible supportive services for discharge in which patient states that she does not anticipate needing. She is receptive to discharge planning if needs arise. A: Pt who is I at baseline. P: Evolving; Patient anticipates discharge home with no sw needs and spouse to transport. ACTIVITIES DIRECTOR SCOUTING to continue to follow to assess for unmet discharge needs. SREEDHAR Tyler Addendum: 07/05/17 at 1553 by LITO BARBOSA Amended: Links added.
--- NOTE | 2017-07-05 16:50 | NUR ---
Bladder irrigation/telemetry pt continues with continuous bladder irrigation. output with intermittent thick red to clear. MD aware of situation. pt had episodes of non sustain VT. md informed. vss. patient asymptomatic. continuing to monitor.
[2017-07-05] MEDS: HYDROmorphone 0.5 mg/0.5 mL iSecure Syringe IVPUSH PRN (19:41)
--- NOTE | 2017-07-05 21:07 | PCM.PNSURG ---
Subjective Date of Service: Jul 05, 2017 Date of Service: Jul 05, 2017 Subjective: Patient reports no back, flank, or abdominal pain, nausea (after receiving Dilaudid IV). Ramos has been on CBI since last night. Objective Vital Sign- Last 8 Hours Date Time Temp Pulse Resp B/P Pulse Ox O2 Delivery O2 Flow Rate FiO2 07/05/17 19:21 36.9 86 22 110/53 98 Room Air 07/05/17 16:02 37.2 59 16 91/51 97 Room Air Intake and Output- Last 8 Hour 07/05/17 Cumulative From/Thru 07:00 07/04/17 07:25 - 07/05/17 06:24 Intake Total 945 ml 3046 ml Output Total 900 ml 2750 ml Balance 45 ml 296 ml IV Total 945 ml 3046 ml Output Urine Total 900 ml 2750 ml General: Alert, Oriented X3, Cooperative, No Acute Distress Neck: Supple Lungs: Normal Air Movement Abdomen: Soft, Non-tender, Non-distended Neuro: Normal Speech, Sensation Intact Catheters: 3 Way Irrigation (Ramos in place, draining pink drainage on moderate CBI. Bladder irrigated with 500ml sterile solution via Ramos for small number of clots. Ramos subsequently seen to drain [id number] drainage on moderate CBI.) Result Diagram: 07/05/17 1647 07/05/17 0325 Lab & Micro Results: 07/04/17: urine Cx negative to date, blood Cx negative to date Assessment & Plan Impression Gross hematuria, UTI, and sepsis, with gross hematuria secondary to UTI and possible bladder tumor, s/p Ramos change and bladder irrigation via Ramos (for very large number of large blood clots) last night, started on CBI last night, with improving gross hematuria, s/p bladder irrigation via Ramos for small number of clots this evening, afebrile, with resolved hypotension, with Hct increased from 23.6 to 33.5 after pRBC transfusion this AM, with Hct stable at 32.7 this afternoon Problems: Plan Recommend continuing broad-spectrum IV Abx (Ceftriaxone) Encourage PO fluid hydration Recommend continuing to hold blood-thinning medications Continue Ditropan PRN, Pyridium PRN Continue Ramos to CBI. Irrigate Ramos manually PRN blood clots, non-draining Ramos, or bloody drainage from Ramos Recommend continuing to follow labs (incl. WBC, Hct, Cr, lytes) and urine and blood Cx Will plan for cystoscopy in the future after her infection has completely cleared Plan was discussed with the patient and her at the bedside Resuscitation Status: DNR/DNI:Do Not Resuscitate/Intubate Brando Garsia MD Jul 05, 2017 21:07
--- NOTE | 2017-07-05 22:15 | NUR ---
bladder irrigated Dr. Garsia in to irrigate pts 3 way barrios, used 1L saline and was able to remove a few small clots, continuos irrigation reconnected and barrios bag changed, Dr. Garsia wanted the irrigation open full wide for a few hours then titrate down to clear urine. pt tolerating well
[2017-07-06] VITALS (8 sets, daily range): BP systolic 82–98; BP diastolic 42–60; PULSE 70–94; RESP 16–18; O2SAT 94–100
--- NOTE | 2017-07-06 05:40 | NUR ---
pain pt c/o abd cramping pain at start of shift, gave Azo standard and Ditropan for abd cramping and 1mg IV dialudid. pt became very nauseated post dilaudid gave zofran pt vomiting about 50cc of yellow/greenish bile. pt also feeling lightheaded after informed MD. pt denies any pain and nausea rest of night. gave another dose of Ditropan this morning. tele SR did have one run of 10 beats of V-tach pt asymptomatic
[2017-07-06 06:00] LABS: BASOPHILS % (AUTO) 0.2 % (0-3); EOSINOPHILS % (AUTO) 0.2 % (0-5); MONOCYTES % (AUTO) 7.4 % (4-12); Mean Corpuscular Hemoglobin 29.9 pg (27.0-35.0); Mean Corpuscular Volume 90.4 fL (81-100); NEUTROPHILS % (AUTO) 79.2 % (40-74); Platelet Count 162 bil/L (150-400)
--- NOTE | 2017-07-06 06:40 | NUR ---
irrigation output pt had 33,000cc irrigation in and 37,800cc out making true urine 4,800cc output, pink tinged with clots
[2017-07-06] MEDS: Sodium Chloride LOK Flush 10 mL Syringe IVFLUSH SCH ×3 (09:21→23:50)
[2017-07-06] MEDS: cefTRIAXone Inj 2,000 MG in Dextrose 5% Minibag Plus 50 ML IV SCH (09:21)
--- NOTE | 2017-07-06 11:24 | NUR ---
Social Work: [facility] SW met with patient to obtain signature of [facility]. ZION has been signed by patient. SREEDHAR Weston
--- NOTE | 2017-07-06 12:58 | PCM.PNMED ---
Subjective Date of Service Jul 06, 2017 Nancy Sanderson is a 76yoF with past medical history of tobacco dependence and peripheral arterial disease who arrived in the ED with a 2 week history of hematuria that began two weeks ago but has acutely worsened the last 2 days prior to admission. Today, patient reports that she feels well. She states that she has been eating a little more that yesterday. She denies nausea and vomiting after breakfast. There were no acute events overnight. On ROS, patient denies headaches, visual changes, chest pain, SOB, nausea, vomiting, abdominal pain. She continues to have blood in her urine and nursing has been continually irrigating as needed. Exam Vital Signs Vital Sign - Last Date Time Temp Pulse Resp B/P Pulse Ox O2 Delivery O2 Flow Rate FiO2 07/06/17 05:28 86 07/06/17 03:33 36.9 18 96/60 94 Room Air Intake and Output 07/05/17 07/05/17 07/06/17 Cumulative From/Thru 15:00 23:00 07:00 07/04/17 07:25 - 07/06/17 06:39 Intake Total 531 ml 681 ml 562 ml 4820 ml Output Total 525 ml 4800 ml 8075 ml Balance 531 ml 156 ml -4238 ml -3255 ml Intake Oral 450 ml 436 ml 886 ml IV Total 231 ml 126 ml 3403 ml Packed Cells 531 ml 531 ml Output Urine Total 525 ml 4800 ml 8075 ml Exam General: Patient is lying comfortably on bed, AAOX3, not in acute distress, cooperative and pleasant. HEENT: head normocephalic and atraumatic, PERRLA, EOMI, no scleral icterus, noninjected conjunctiva Neck: neck supple, non-tender, no lymphadenopathy, trachea midline, no JVD CV: regular rate and rhythm, s1 and s2 heard, radial pulses 2+ and equal bilaterally, no rubs, murmurs or gallops, no edema Lungs: Clear to auscultation bilaterally, no wheezes, rales or rhonchi, no increased work of breathing Abdomen: normoactive bowel sounds on 4Q, soft, non-distended, non-tender to palpation, large palpable mass below the umbilicus Skin: warm and dry, : barrios catheter in place, with visible gross hematuria Musculoskeletal: 5/5 UE and LE strength bilaterally, full ROM bilaterally Neuro: Grossly neurologically intact, cranial nerves II through XII intact, no dyskinesia, dysmetria, or dysdiadochokinesia noted Psych: Normal mood and affect, appears to have some dementia at baseline IVs and Medications Medications Reviewed: Medications were reviewed in detail Lab and Diagnostics Result Diagram: 07/06/17 0549 07/06/17 0549 X-Rays, CTs and MRIs CT ABDOMEN AND PELVIS WITH CONTRAST IMPRESSION: Large heterogeneous bladder mass which could represent hematoma however there is superimposed left posterior focus of increased attenuation which is suspicious for enhancing bladder wall mass/malignancy. Recommend further evaluation with cystoscopy. Minimal intrahepatic bile duct dilatation. Please correlate clinically with LFTs. Cholelithiasis. Numerous subcentimeter pancreatic cystic foci, not well evaluated by CT. Recommend further evaluation with dedicated pancreatic protocol MRI after the patient's acute episode has resolved Cystic focus in the right adnexa although this is adjacent to the bladder. Unclear if this represents bladder diverticulum versus right ovarian cystic lesion. Further assessment with pelvic ultrasound in the nonemergent setting could be performed. Approved by: Ki Mcmullen M.D. on 07/04/2017 at 11:03 Assessment & Plan Yolanda Sanderson is a 76yoF with past medical history of tobacco dependence and peripheral arterial disease who arrived in the ED with a 2 week history of hematuria that began two weeks ago but has acutely worsened the last 2 days prior to admission. Per recommendations of urology, we will continue treating possible UTI with 2 g ceftriaxone and continue barrios irrigation. The plan is for patient to undergo cystoscopy as an outpatient procedure. Acute hematuria with Acute blood loss anemia secondary to urinary tract infection and possible bladder tumor - White blood cell count of 7.5 with no shift, temperature of 36 on admission, pro-calcitonin 0.03 not consistent with overt sepsis - Records from urgent care clinic note the patient was tested for possible UTI with culture resulting in pansensitive Escherichia coli placed on Bactrim DS - Patient was started on Rocephin in the ED - Continue Rocephin 2000 mg daily, Urine cultures pending. Thus far show no growth - Urology was consulted in the ED. This case was discussed extensively with Dr. Garsia who initially saw patient on 07/04/17. Urology will continue to follow - Barrios irrigation via to way Barrios with 60 mL liter syringe until Barrios runs clear Q 2 to 3 hours while awake, and Q4-6 hours while sleep -Per Urology, Ditropan p.r.n. and Pyridium p.r.n. have been ordered. -Recommended Barrios catheter to continuous bladder irrigation and irrigating the Barrios catheter p.r.n. blood clots, nondraining Barrios, or bloody drainage from the Barrios -In addition, urology will do outpatient cystoscopy once infection has resolved - Hemoglobin dropped from 10.2 to 8.6 in the ED over several hours Patient was typed and screened -Since admission, patient has received 2 units PRBcs - Hemoglobin and hematocrit checked every 8 hours - Patient typed and screened in ED, currently holding 2 units PRBCs, transfusion threshold is with hemoglobin less than 8 given history of peripheral arterial disease and family history of coronary artery disease -H/H this morning was 9.0/ 27.2. Acute hypotension secondary to acute blood loss anemia - Patient's blood pressure on presentation was 70/29 which improved to 92/54 with 2 L of normal saline IV fluids given in the ED - Patient had lactic acid of 2.9 which corrected with fluids to 1.2 over 7 hours while in the ED this is likely secondary to poor perfusion due to hypotension more so than sepsis - Now discontinued LR at 100 mils per hour - Transfusion protocol described above secondary to acute blood loss anemia Acute bladder mass noted on CT imaging - Patient has a 50 year history of tobacco dependence but does not carry any history of familial cancer - Imaging shows some contrast enhancement which could be consistent with possible mass - Given gross hematuria with significant blood loss from a simple urinary tract infection this is likely a mass with friable overlying tissue - Urology was consulted and Dr. Garsia will follow, recommendations described above, likely cystoscopy as an outpatient Tobacco dependency - Nicotine patch available when necessary DVT prophylaxis: Anticoagulation is contraindicated given gross hematuria and acute blood loss anemia GI prophylaxis: None indicated CODE STATUS is DNR/DNI this was discussed with patient's daughter in the room as well as the patient directly GI Prophylaxis: Not indicated VTE Mechanical Devices: Intermittant Pneumatic CD Resuscitation Status: DNR/DNI:Do Not Resuscitate/Intubate Attending Statement The patient was seen and examined together with Dr. Huang on 07/06/2017 and I agree with the history, exam and plan as outlined in the note above. . Hoda Huang DO Jul 06, 2017 07:03 Solitario Chan MD Jul 07, 2017 07:46
[2017-07-06] MEDS ORDERED: Benzocaine-Menthol Lozenge 2/Pkg PO PRN (18:10)
--- NOTE | 2017-07-06 19:26 | NUR ---
Irrigation/Bowels Patient a/o x 3, denies pain but c/o abd/bladder spasms, meds x 1 given. Patient on continuous bladder irrigation, barrios with cranberry to dark burgundy uop with sediment and minimal blood clots. True uop 100 ml this shift. Patient having freq liq brown stools approx 15 BM's this shift, MD notified and stool samples sent, results pending. Patient oob multiple times, c/o dizziness and weakness with activity. See vitals, tele SR-ST.
[2017-07-07] VITALS (13 sets, daily range): BP systolic 72–114; BP diastolic 38–71; PULSE 75–91; RESP 16–18; O2SAT 94–96
[2017-07-07] MEDS ORDERED: 0.9% Sodium Chloride 500 ML IV ONE (01:00)
[2017-07-07] MEDS: HYDROmorphone 0.5 mg/0.5 mL iSecure Syringe IVPUSH PRN ×2 (01:59→11:58)
[2017-07-07 04:39] LABS: BASOPHILS % (AUTO) 0.2 % (0-3); EOSINOPHILS % (AUTO) 0.1 % (0-5); MONOCYTES % (AUTO) 8.5 % (4-12); Mean Corpuscular Hemoglobin 30.2 pg (27.0-35.0); Mean Corpuscular Volume 92.5 fL (81-100); NEUTROPHILS % (AUTO) 84.6 % (40-74); Platelet Count 180 bil/L (150-400)
--- NOTE | 2017-07-07 07:24 | NUR ---
Barrios/BP/Temp/Tele Three way barrios replaced due occlusion. Continuous bladder irrigation continues with adequate output-see DEC. Pt received Tylenol 975mg for Temp 37.8 and NS 500ml bolus for BP in 70s. Now BP 114/38. Temp now 36.6. Tele: SR HR 95 PAC. Care continues.
[2017-07-07] MEDS: Sodium Chloride LOK Flush 10 mL Syringe IVFLUSH SCH ×2 (08:30→17:11)
[2017-07-07] MEDS: cefTRIAXone Inj 2,000 MG in Dextrose 5% Minibag Plus 50 ML IV SCH (09:23)
[2017-07-07] MEDS: [UNRECOGNIZED DRUG - OTHER] PO SCH (09:23)
--- NOTE | 2017-07-07 13:00 | NUR ---
NUTRITION ASSESSMENT: ASSESS: 76 YO female admitted with gross hematuria, UTI, sepsis, possible bladder tumor, status post barrios catheter change and status post bladder irrigation via the Barrios catheter at the bedside for a large number of large blood clots, with improved gross hematuria after bladder irrigation. Per urology, gross hematuria should improve with continuous bladder irrigation and treatment of UTI. The patient is having significant diarrhea, C. diff. negative. The patient's PO intake has been negligible; however, she reports she is eating better today. PMHx: UTI, surgery for removal of bladder cyst or bladder tumor, herniated lumbar disc repair, bilateral lower extremity angioplasty, peripheral arterial disease, DNR, cataracts, anxiety. DIET: Heart healthy. PO intake 0 - 50% trays. LABS: Reviewed. Glu 117, Lactic Acid 2.8, Ca 8.3, Alb 2.7. MEDICATIONS: Reviewed. Imodium. NUTRITION FOCUSED PHYSICAL ASSESSMENT: GI symptoms / stool: Diarrhea. Bhupinder: 19. Skin Integrity: No issues reported. ANTHROPOMETRICS: Current Wt: 51.7 kg BMI: 18.0 kg/m2. Admit weight: 52.73 kg. The patient has had no recent weight loss, despite her BMI 18.0. IBW: ESTIMATED NEEDS: Calories: 1318 - 1582 kcal (25 - 30 kcal / kg BW) Protein: 42 - 63 g protein (0.8 - 1.2 g / kg BW) NUTRITION DIAGNOSIS: 1)Inadequate oral intake related to inability to consume sufficient energy, as evidenced by poor PO intake documentation, diarrhea. INTERVENTION: 1) Will add Ensure to lunch and dinner trays. MONITOR/EVALUATE: PO intake, labs, weight, nutritional status. Follow up per moderate nutrition risk guidelines.
--- NOTE | 2017-07-07 14:09 | PCM.PNMED ---
Subjective Date of Service Jul 07, 2017 Nancy Sanderson is a 76yoF with past medical history of tobacco dependence and peripheral arterial disease who arrived in the ED with a 2 week history of hematuria that began two weeks ago but has acutely worsened the last 2 days prior to admission. Today, patient states that she feels better than she did last night. She reports that she had lower abdominal pain overnight. The pain was relieved when nursing irrigated the blood clot from her Barrios. She had multiple episodes of diarrhea yesterday. Stool PCR was negative. Today, she denies headaches, visual changes, chest pain, shortness of breath, nausea, vomiting, abdominal pain and dysuria. She states that her diarrhea has resolved. She was able to tolerate breakfast. She notes that she still has a mild sore throat but denies cough. Overnight, per nursing reports, Three way barrios was replaced due occlusion. Continuous bladder irrigation continues with adequate output. Pt received Tylenol 975mg for Temp 37.8 and NS 500ml bolus for BP in 70s. Exam Vital Signs Vital Sign - Last Date Time Temp Pulse Resp B/P Pulse Ox O2 Delivery O2 Flow Rate FiO2 07/07/17 05:55 86 07/07/17 04:53 36.6 18 114/38 95 Room Air Intake and Output 07/06/17 07/06/17 07/07/17 Cumulative From/Thru 15:00 23:00 07:00 07/04/17 07:25 - 07/07/17 06:22 Intake Total 171 ml 5991 ml Output Total 100 ml 900 ml 9075 ml Balance 71 ml -900 ml -3084 ml Intake Oral 886 ml IV Total 171 ml 4574 ml Packed Cells 531 ml Output Urine Total 100 ml 900 ml 9075 ml Exam General: Patient is lying comfortably on bed, AAOX3, not in acute distress, cooperative and pleasant. HEENT: head normocephalic and atraumatic, PERRLA, EOMI, no scleral icterus, noninjected conjunctiva Neck: neck supple, non-tender, no lymphadenopathy, trachea midline, no JVD CV: regular rate and rhythm, s1 and s2 heard, radial pulses 2+ and equal bilaterally, no rubs, murmurs or gallops, no edema Lungs: Clear to auscultation bilaterally, no wheezes, rales or rhonchi, no increased work of breathing Abdomen: normoactive bowel sounds on 4Q, soft, non-distended, non-tender to palpation, large palpable mass below the umbilicus Skin: warm and dry, : barrios catheter in place, with visible gross hematuria Musculoskeletal: 5/5 UE and LE strength bilaterally, full ROM bilaterally Neuro: Grossly neurologically intact, cranial nerves II through XII intact, no dyskinesia, dysmetria, or dysdiadochokinesia noted Psych: Normal mood and affect, appears to have some dementia at baseline IVs and Medications Medications Reviewed: Medications were reviewed in detail Lab and Diagnostics Laboratory Tests Test 07/06/17 12:15 07/06/17 20:05 07/07/17 04:19 Hemoglobin 9.6g/dL (12.0-15.6) 9.1g/dL (12.0-15.6) 8.1g/dL (12.0-15.6) Hematocrit 28.2% (35.0-46.0) 27.4% (35.0-46.0) 24.8% (35.0-46.0) White Blood Count 15.4th/mm3 (3.8-10.1) Red Blood Count 2.68mil/mm3 (3.90-5.20) Mean Corpuscular Volume 92.5fL (81-100) Mean Corpuscular Hemoglobin 30.2pg (27.0-35.0) Mean Corpuscular Hemoglobin Concent 32.7% (32.0-37.0) Red Cell Distribution Width 14.8% (12.3-15.4) Platelet Count 180bil/L (150-400) Neutrophils (%) (Auto) 84.6% (40-74) Lymphocytes (%) (Auto) 6.3% (14-46) Monocytes (%) (Auto) 8.5% (4-12) Eosinophils (%) (Auto) 0.1% (0-5) Basophils (%) (Auto) 0.2% (0-3) Sodium Level 138mEq/L (134-144) Potassium Level 3.9mEq/L (3.5-5.2) Chloride Level 104mEq/L (97-108) Carbon Dioxide Level 19mmol/L (18-29) Blood Urea Nitrogen 11mg/dL (8-27) Creatinine 0.63mg/dL (0.57-1.00) Estimat Glomerular Filtration Rate 131mL/min (>59) Glucose Level 117mg/dL (60-99) Lactic Acid Level 2.8mmol/L (0.4-2.0) Calcium Level 8.3mg/dL (8.5-10.1) Total Bilirubin 0.4mg/dL (0.0-1.2) Aspartate Amino Transf (AST/SGOT) 38U/L (0-50) Alanine Aminotransferase (ALT/SGPT) 31U/L (0-32) Alkaline Phosphatase 78U/L (25-165) Total Protein 4.4g/dL (6.4-8.4) Albumin 2.7g/dL (3.4-5.0) Microbiology 07/04/17 Blood Culture - Preliminary, Resulted No growth at 2 days; culture examined... 07/06/17 Campylobacter (PCR) - Final, Complete Not Detected 07/06/17 Clostridium difficile Toxin A&B (M) - Final, Complete Not Detected 07/06/17 Plesiomonas shigelloides (PCR) - Final, Complete Not Detected 07/06/17 Salmonella (PCR)(ARYA) - Final, Complete Not Detected 07/06/17 Yersinia enterocolitica (PCR) - Final, Complete Not Detected 07/06/17 Vibrio Species (PCR) - Final, Complete Not Detected 07/06/17 Vibrio Cholerae (PCR) - Final, Complete Not Detected 07/06/17 Enteroaggregative E. coli (PCR) - Final, Complete Not Detected 07/06/17 Enteropathogenic E. coli (PCR) - Final, Complete Not Detected 07/06/17 Enterotoxigenic E. coli (PCR) - Final, Complete Not Detected 07/06/17 E. coli Shiga-like Toxin (PCR) - Final, Complete Not Detected 07/06/17 Escherichia coli 0157 (PCR) - Final, Complete Not Detected 07/06/17 Enteroinvasive E. coli/Shigella PCR - Final, Complete Not Detected 07/06/17 Cryptosporidium (PCR) - Final, Complete Not Detected 07/06/17 Cyclospora cayetanensis (PCR) - Final, Complete Not Detected 07/06/17 Entamoeba histolytica (PCR) - Final, Complete Not Detected 07/06/17 Giardia lamblia (PCR) - Final, Complete Not Detected 07/06/17 Adenovirus Type F 40/41 (PCR) - Final, Complete Not Detected 07/06/17 Astrovirus (PCR) - Final, Complete Not Detected 07/06/17 Norovirus (PCR) - Final, Complete Not Detected 07/06/17 Rotavirus A (PCR) - Final, Complete Not Detected 07/06/17 Sapovirus I/II/IV/V (PCR) - Final, Complete 07/04/17 Urine Culture - Final, Complete No growth (<1,000 organisms/mL) Result Diagram: 07/07/17 0419 07/07/17 0419 X-Rays, CTs and MRIs CT ABDOMEN AND PELVIS WITH CONTRAST IMPRESSION: Large heterogeneous bladder mass which could represent hematoma however there is superimposed left posterior focus of increased attenuation which is suspicious for enhancing bladder wall mass/malignancy. Recommend further evaluation with cystoscopy. Minimal intrahepatic bile duct dilatation. Please correlate clinically with LFTs. Cholelithiasis. Numerous subcentimeter pancreatic cystic foci, not well evaluated by CT. Recommend further evaluation with dedicated pancreatic protocol MRI after the patient's acute episode has resolved Cystic focus in the right adnexa although this is adjacent to the bladder. Unclear if this represents bladder diverticulum versus right ovarian cystic lesion. Further assessment with pelvic ultrasound in the nonemergent setting could be performed. Approved by: Ki Mcmullen M.D. on 07/04/2017 at 11:03 Assessment & Plan Yolanda Sanderson is a 76yoF with past medical history of tobacco dependence and peripheral arterial disease who arrived in the ED with a 2 week history of hematuria that began two weeks ago but has acutely worsened the last 2 days prior to admission. Per recommendations of urology, we will continue treating possible UTI with 2 g ceftriaxone and continue barrios irrigation. The plan is for patient to undergo cystoscopy as an outpatient procedure. Spoke with urologist bonded structures repairer today, Dr. Ritter, and she will see patient later today to set goals in terms of discharge planning. Acute hematuria with Acute blood loss anemia secondary to urinary tract infection and possible bladder tumor - White blood cell count of 7.5 with no shift, temperature of 36 on admission, pro-calcitonin 0.03 not consistent with overt sepsis - Records from urgent care clinic note the patient was tested for possible UTI with culture resulting in pansensitive Escherichia coli placed on Bactrim DS - Patient was started on Rocephin in the ED - Continue Rocephin 2000 mg daily, Urine cultures pending. Thus far show no growth - Urology was consulted in the ED. This case was discussed extensively with Dr. Garsia who initially saw patient on 07/04/17. Urology will continue to follow - Barrios irrigation via to way Barrios with 60 mL liter syringe until Barrios runs clear Q 2 to 3 hours while awake, and Q4-6 hours while sleep -Per Urology, Ditropan p.r.n. and Pyridium p.r.n. have been ordered. -Recommended Barrios catheter to continuous bladder irrigation and irrigating the Barrios catheter p.r.n. blood clots, nondraining Barrios, or bloody drainage from the Barrios -In addition, urology will do outpatient cystoscopy once infection has resolved - Hemoglobin dropped from 10.2 to 8.6 in the ED over several hours. Patient was typed and screened -Since admission, patient has received 2 units PRBcs - Hemoglobin and hematocrit checked every 8 hours - Patient typed and screened in ED, currently holding 2 units PRBCs, transfusion threshold is with hemoglobin less than 8 given history of peripheral arterial disease and family history of coronary artery disease -H/H this morning was 8.1/24.8. Repeat H/H during noon shows improvement 8.4/ 24.9. Acute hypotension secondary to acute blood loss anemia - Patient's blood pressure on presentation was 70/29 which improved to 92/54 with 2 L of normal saline IV fluids given in the ED - Patient had lactic acid of 2.9 which corrected with fluids to 1.2 over 7 hours while in the ED this is likely secondary to poor perfusion due to hypotension more so than sepsis - Was started on LR at 100 mils per hour but that has been discontinued -Overnight, patient was hypotensive and received 500 ml bolus. - Transfusion protocol described above secondary to acute blood loss anemia Acute Leukocytosis, ongoing -WBC increased to 15.4 today. Lactic acid 2.8. Procalcitonin negative at 0.07 -Patient is being treated with 2 g ceftriaxone for presumed UTI -investigating possible sources of infection -Patient had diarrhea but stool PCR has been negative -no cough, SOB, and lung sounds were clear bilaterally Acute bladder mass noted on CT imaging - Patient has a 50 year history of tobacco dependence but does not carry any history of familial cancer - Imaging shows some contrast enhancement which could be consistent with possible mass - Given gross hematuria with significant blood loss from a simple urinary tract infection this is likely a mass with friable overlying tissue - Urology was consulted and Dr. Garsia will follow, recommendations described above, likely cystoscopy as an outpatient Tobacco dependency - Nicotine patch available when necessary DVT prophylaxis: Anticoagulation is contraindicated given gross hematuria and acute blood loss anemia GI prophylaxis: None indicated CODE STATUS is DNR/DNI this was discussed with patient's daughter in the room as well as the patient directly Pain Evaluation: Adequate Pain Control GI Prophylaxis: Not indicated VTE Mechanical Devices: Intermittant Pneumatic CD Resuscitation Status: DNR/DNI:Do Not Resuscitate/Intubate Attending Statement The patient was seen and examined together with Dr. Huang on 07/07/2017 and I agree with the history, exam and plan as outlined in the note above. . Hoda Huang DO Jul 07, 2017 07:44 Solitario Chan MD Jul 07, 2017 17:57
--- NOTE | 2017-07-07 17:28 | NUR ---
Pain/CBI Patient a/o x 3, c/o upper quad abd pain, Dilaudid IVP given x 1, patient sleeping most of the afternoon, but arouses easily. Patient denies nausea or sob, taking diet fair. SBP 70-100's, MD aware, no new orders. Tele SR. CBI going, barrios putting out cranberry color uop, no clots noted. Patient denies bladder spasms or cramping. No stools this shift.
--- NOTE | 2017-07-07 19:41 | PCM.PNSURG ---
Subjective Date of Service: Jul 07, 2017 Date of Service: Jul 07, 2017 Visit Information: Reason for Visit Gross Hematuria/Sepsis/Bladder Mass New Surgery/Surgery Date Post-Op Day # Date of Admission: Jul 04, 2017 at 13:02 Hospital Day # Subjective: Ms Sanderson states she is doing relatively well, in light of her hospitalization and course. She denies pain. Her is at bedside. Postop General: No Complaints Gastrointestinal: Good Appetite Objective Vital Sign- Last 8 Hours Date Time Temp Pulse Resp B/P Pulse Ox O2 Delivery O2 Flow Rate FiO2 07/07/17 17:31 36.9 91 18 100/61 96 Room Air 07/07/17 16:14 75 07/07/17 13:06 36.6 79 18 101/60 96 Room Air Intake and Output- Last 8 Hour 07/07/17 Cumulative From/Thru 07:00 07/04/17 07:25 - 07/07/17 06:22 Intake Total 5991 ml Output Total 900 ml 9075 ml Balance -900 ml -3084 ml Intake Oral 886 ml IV Total 4574 ml Packed Cells 531 ml Output Urine Total 900 ml 9075 ml General: Alert, No Acute Distress Abdomen: Soft, Non-tender Extremities: Warm Neuro: Cranial Nerves 2-12 nl Catheters: 3 Way Irrigation (moderate-fast drip, clear fluid in the cath tubing with scant red sedimen in the line.) Result Diagram: 07/07/17 1156 07/07/17 0419 Assessment & Plan Impression 76 F with gross hematuria Problems: Plan We reviewed her CT findings - She had clot present, though this was evacuated at the bedside by Dr Garsia - She appears to have a bladder tumor present as well, though she would require further eval (cysto) to verify We discussed her and her 's questions - Such as, if somewhat vigorous activity (yard work) contributed to the hematuria; I reassured them they did nothing wrong. - She has had diarrhea and constipation; I do not believe the tumor is related Presently, given her stable HH and the appearance of her catheter, I do not recommend proceeding to the OR at this time. - Her CBI should be titrated/weaned starting tomorrow morning to give her the better part of the day to assess her irrigation needs. - My hope, of course, is that she can be weaned off entirely and discharge to home. Resuscitation Status: DNR/DNI:Do Not Resuscitate/Intubate Oanh Ritter MD Jul 07, 2017 19:41
[2017-07-08] VITALS (14 sets, daily range): BP systolic 85–102; BP diastolic 45–59; PULSE 77–93; RESP 16–18; O2SAT 92–95
[2017-07-08] MEDS: Sodium Chloride LOK Flush 10 mL Syringe IVFLUSH SCH ×3 (00:33→16:51)
[2017-07-08] MEDS: Ondansetron 2 mg/mL 2 mL Inj IVPUSH PRN (00:33)
--- NOTE | 2017-07-08 03:05 | NUR ---
bp aware that bp on right arm =93/57 and 78/44 with initial assessment, pt asymptomatic, able to sit up on bsc without being dizzy, at mn bp=92/59, also aware of pt being on irrigation for bloody uop, h/h=8 and 24, aware pt has adequate uop, no new orders, tele- sr occ pvc.pacs, murmur present, denies cp, c/o nausea times one after mn, zofran given, no emesis, imodium given for diarrhea stools--5 so far, aware of diarrhea stools too, no new orders, pt able to get up to bsc with one sba, darker uop noted per fc after being up to bsc but quickly returns to light pink tinge when laying down, am cbc ordered, see assessment charting, plan:monitor f/c/irrigation Addendum: 07/08/17 at 0647 by HUSSEIN FERNÁNDEZ RN h/h paged to this am
[2017-07-08 05:12] LABS: BASOPHILS % (AUTO) 0.3 % (0-3); EOSINOPHILS % (AUTO) 0.2 % (0-5); MONOCYTES % (AUTO) 13.6 % (4-12); Mean Corpuscular Hemoglobin 30.4 pg (27.0-35.0); Mean Corpuscular Volume 93.2 fL (81-100); NEUTROPHILS % (AUTO) 73.6 % (40-74); Platelet Count 190 bil/L (150-400)
[2017-07-08] MEDS ORDERED: 0.9% Sodium Chloride 250 ML IV PRN (08:00)
[2017-07-08] MEDS: cefTRIAXone Inj 2,000 MG in Dextrose 5% Minibag Plus 50 ML IV SCH (08:52)
[2017-07-08] MEDS: [UNRECOGNIZED DRUG - OTHER] PO SCH (08:52)
[2017-07-08] MEDS: 0.9% NaCl + KCl 20 mEq/L 1,000 ML IV SCH ×2 (12:21→21:57)
--- NOTE | 2017-07-08 13:44 | PCM.PNSURG ---
Subjective Date of Service: Jul 08, 2017 Date of Service: Jul 08, 2017 Visit Information: Reason for Visit Gross Hematuria/Sepsis/Bladder Mass New Surgery/Surgery Date Post-Op Day # Date of Admission: Jul 04, 2017 at 13:02 Hospital Day # Subjective: Ms Sanderson is soundly napping at the time of my arrival to her room. CBI continues to run at the same pace as yesterday, seemingly without the titration as ordered yesterday. Notes indicate there was some reddening of her urine when she was up to commode. Objective Vital Sign- Last 8 Hours Date Time Temp Pulse Resp B/P Pulse Ox O2 Delivery O2 Flow Rate FiO2 07/08/17 12:01 36.8 81 16 102/50 07/08/17 11:47 36.7 80 16 85/45 07/08/17 10:12 78 07/08/17 09:05 91 07/08/17 08:45 37.5 91 16 88/54 95 Room Air 07/08/17 06:14 77 Intake and Output- Last 8 Hour 07/08/17 Cumulative From/Thru 07:00 07/04/17 07:25 - 07/08/17 05:52 Intake Total 200 ml 6871 ml Output Total 900 ml 45970 ml Balance -700 ml -4604 ml Intake Oral 200 ml 1656 ml IV Total 0 ml 4684 ml Packed Cells 531 ml Output Urine Total 900 ml 55782 ml # Bowel Movements 5 5 General: No Acute Distress Catheters: 3 Way Irrigation (moderate fast drip, clear in tubing with red sediment) Result Diagram: 07/08/17 0502 07/08/17 0502 Assessment & Plan Impression Gross hematuria likely from suspected bladder tumor Problems: Plan I have reviewed her HH I have personally discussed her CBI with her nurse - I have turned down her CBI drip to slow - Nursing to wean as tolerated She will be NPO at [place] If her hematuria does has not responded to CBI and weaning of, I would recommend OR tomorrow I will see her tomorrow and discuss with her the recommendations based on her course from today Resuscitation Status: DNR/DNI:Do Not Resuscitate/Intubate Oanh Ritter MD Jul 08, 2017 13:44
--- NOTE | 2017-07-08 14:42 | NUR ---
Social Work: Readiness for Discharge/Multidisciplinary Rounds D: Per EMR review, pt is a 76 year old female on day 4 of hospitalization for gross hematuria, sepsis, new bladder mass. Pt discussed in multidisciplinary rounds, pt is not medically stable for discharge. Urology is following pt. Pt may return to OR tomorrow. No SW needs identified in rounds. SW met with pt at bedside to assess for any unmet needs. Pt declined needs at this time but is receptive to reaching out if needs arise. Pt is eager to return home. SW will continue to follow. A: Pt who is I at baseline. P: Pt may return to OR tomorrow pending clinical course. Patient anticipates discharge home with no sw needs and spouse to transport. [employer] to continue to follow to assess for unmet discharge needs. SREEDHAR Pollock
--- NOTE | 2017-07-08 16:09 | PCM.PNMED ---
Subjective Date of Service Jul 08, 2017 Subjective Overnight: No acute events noted Today: Patient denies any fever or chills, worsening abdominal pain. The patient is curious whether she will be discharged but understands given her decreasing hemoglobin and that she will require another blood transfusion today. The patient understands our she will be started on Marinol to increase her appetite. No questions at this time. Exam Vital Signs Vital Sign - Last Date Time Temp Pulse Resp B/P Pulse Ox O2 Delivery O2 Flow Rate FiO2 07/08/17 06:14 77 07/08/17 03:48 37.1 16 93/50 94 Room Air Intake and Output 07/07/17 07/07/17 07/08/17 Cumulative From/Thru 15:00 23:00 07:00 07/04/17 07:25 - 07/08/17 05:52 Intake Total 680 ml 200 ml 6871 ml Output Total 1500 ml 900 ml 65356 ml Balance -820 ml -700 ml -4604 ml Intake Oral 570 ml 200 ml 1656 ml IV Total 110 ml 0 ml 4684 ml Packed Cells 531 ml Output Urine Total 1500 ml 900 ml 08946 ml # Bowel Movements 0 5 5 Exam General: Elderly female appearing in no acute distress Eyes: Pupils equal round and reactive to light, extraocular motion intact, anicteric sclera, noninjected conjunctiva HENT: Normocephalic atraumatic, moist mucous membranes without central cyanosis , oropharynx clear without purulent exudate or cobblestoning mucosa Neck: Supple, trachea midline, without thyromegaly or JVD Cardiovascular: Regular rate and regular rhythm, S1-S2 present, without murmurs rubs or gallops noted Lungs: Clear to auscultation bilaterally without wheezing rales or rhonchi Abdomen: Soft, tender in suprapubic region with noted mass palpable in her bladder, nondistended, tympanic to percussion, hyper active bowel sounds, without organomegaly Extremities: No cyanosis clubbing or edema noted, pulses intact bilaterally at dorsalis pedis and radial : Ramos catheter in place with improving hematuria and the tubing Skin: Warm and dry, pale Neuro: Nonfocal neurologic exam, able to move all extremities spontaneously Psych: Normal mood and affect Lab and Diagnostics Result Diagram: 07/08/17 0502 07/08/17 0502 X-Rays, CTs and MRIs CT ABDOMEN AND PELVIS WITH CONTRAST IMPRESSION: Large heterogeneous bladder mass which could represent hematoma however there is superimposed left posterior focus of increased attenuation which is suspicious for enhancing bladder wall mass/malignancy. Recommend further evaluation with cystoscopy. Minimal intrahepatic bile duct dilatation. Please correlate clinically with LFTs. Cholelithiasis. Numerous subcentimeter pancreatic cystic foci, not well evaluated by CT. Recommend further evaluation with dedicated pancreatic protocol MRI after the patient's acute episode has resolved Cystic focus in the right adnexa although this is adjacent to the bladder. Unclear if this represents bladder diverticulum versus right ovarian cystic lesion. Further assessment with pelvic ultrasound in the nonemergent setting could be performed. Approved by: Ki Mcmullen M.D. on 07/04/2017 at 11:03 Assessment & Plan Yolanda Sanderson is a 76yoF with past medical history of tobacco dependence and peripheral arterial disease who arrived in the ED with a 2 week history of hematuria that began two weeks ago but has acutely worsened the last 2 days prior to admission. Acute blood loss anemia secondary to Acute hematuria, present on admission - CT Imaging shows some contrast enhancement which could be consistent with possible mass, given gross hematuria with significant blood loss from a simple urinary tract infection this is likely a mass with friable overlying tissue - White blood cell count of 7.5 with no shift, temperature of 36 on admission, pro-calcitonin 0.03 not consistent with overt sepsis - Records from urgent care clinic note the patient was tested for possible UTI with culture resulting in pansensitive Escherichia coli placed on Bactrim DS - Patient was started on Rocephin in the ED, Continue Rocephin 2000 mg daily, Urine cultures pending. Thus far show no growth - Urology was consulted in the ED. This case was discussed extensively with Dr. Garsia who initially saw patient on 07/04/17. Urology will continue to follow. Per Urology, Ditropan p.r.n. and Pyridium p.r.n. have been ordered. - Recommended Ramos catheter to continuous bladder irrigation and irrigating the Ramos catheter p.r.n. blood clots, nondraining Ramos, or bloody drainage from the Ramos - Hemoglobin dropped from 10.2 to 7.6 over several hours around admission. Transfused 2 units PRBCs, hemoglobin improved to 11.5 after transfusion but his symptoms down trended again to 7.6 and a single unit of PRBCs given - Hemoglobin and hematocrit checked every 12 hours - Patient typed and screened in ED, currently holding 1 units PRBCs, transfusion threshold is with hemoglobin less than 8 given history of peripheral arterial disease and family history of coronary artery disease - Dr. Ritter of Urology to make patient nothing by mouth after midnight given continual drop in hemoglobin due to hematuria with consideration for OR on July 09 Acute hypotension secondary to acute blood loss anemia, present on admission, stable - Patient's blood pressure on presentation was 70/29 which improved to 92/54 with 2 L of normal saline IV fluids given in the ED - Patient had lactic acid of 2.9 which corrected with fluids to 1.2 over 7 hours while in the ED this is likely secondary to poor perfusion due to hypotension more so than sepsis - Was started on LR at 100 mils per hour but that has been discontinued - Transfusion protocol described above secondary to acute blood loss anemia Acute Leukocytosis likely secondary to urinary tract infection, ongoing -WBC increased to 15.4 after admission while on antibiotics which subsequently down trended to 9 on July 08 -Patient is being treated with 2 g ceftriaxone for presumed UTI -investigating possible sources of infection -Patient had diarrhea but stool PCR has been negative -no cough, SOB, and lung sounds were clear bilaterally Acute bladder mass noted on CT imaging, present on admission, under evaluation - Patient has a 50 year history of tobacco dependence but does not carry any history of familial cancer - Imaging shows some contrast enhancement which could be consistent with possible mass - Given gross hematuria with significant blood loss from a simple urinary tract infection this is likely a mass with friable overlying tissue - Urology was consulted - Dr. Ritter of Urology to make patient nothing by mouth after midnight given continual drop in hemoglobin due to hematuria with consideration for OR on July 09 Tobacco dependency, present on admission, stable - Nicotine patch available when necessary DVT prophylaxis: Anticoagulation is contraindicated given gross hematuria and acute blood loss anemia GI prophylaxis: None indicated CODE STATUS is DNR/DNI this was discussed with patient's daughter in the room as well as the patient directly GI Prophylaxis: Not indicated VTE Mechanical Devices: Intermittant Pneumatic CD Resuscitation Status: DNR/DNI:Do Not Resuscitate/Intubate Jorge Colon DO Jul 08, 2017 07:56
--- NOTE | 2017-07-08 18:26 | NUR ---
PRBC/Appetite/CBI Patient a/o x 3, denies pain or sob, but c/o nausea no emesis. Patient has poor appetite, took only bites of breakfast and lunch and declined dinner. See vitals, tele SR. Patient recieved one unit PRBC's, david well. Patient declined getting oob or bathing this shift. CBI going at slow/mod gtt rate, uop cranberry color with sediment. Plan for npo after midnight for possible OR procedure.
[2017-07-09] VITALS (14 sets, daily range): BP systolic 93–114; BP diastolic 45–70; PULSE 65–104; RESP 14–19; O2SAT 93–100
[2017-07-09] MEDS: Sodium Chloride LOK Flush 10 mL Syringe IVFLUSH SCH ×3 (00:27→15:53)
[2017-07-09 02:47] LABS: Mean Corpuscular Hemoglobin 30.8 pg (27.0-35.0); Mean Corpuscular Volume 91.9 fL (81-100)
[2017-07-09 03:56] LABS: INR 1.01 ratio
--- NOTE | 2017-07-09 04:22 | NUR ---
CBI/Rest/NPO CBI continues, with dark pink fluid draining into the bag. Patient denies pain overnight; sleeping peacefully at all checks. NPO since midnight pending procedure.
[2017-07-09] MEDS: 0.9% NaCl + KCl 20 mEq/L 1,000 ML IV SCH (05:45)
[2017-07-09] MEDS ORDERED: Propofol 10,000 mCg/mL 20 mL Inj ONE (07:27)
[2017-07-09] MEDS ORDERED: Phenylephrine/NS 100 mCg/mL 10 mL Syringe IVPUSH ONE (07:27)
[2017-07-09] MEDS ORDERED: Ondansetron 2 mg/mL 2 mL Inj ONE (07:27)
[2017-07-09] MEDS ORDERED: Dexamethasone 4 mg/mL Inj ONE (07:27)
[2017-07-09] MEDS ORDERED: EPHEDrine/NS 5 mg/mL 5 mL Syringe ONE (07:27)
[2017-07-09] MEDS ORDERED: fentaNYL-PF 50 mCg/mL 2 mL Inj ONE (07:27)
--- NOTE | 2017-07-09 07:46 | PCM.PNSURG ---
Subjective Date of Service: Jul 09, 2017 Date of Service: Jul 09, 2017 Visit Information: Reason for Visit Gross Hematuria/Sepsis/Bladder Mass New Surgery/Surgery Date Post-Op Day # Date of Admission: Jul 04, 2017 at 13:02 Hospital Day # Subjective: Ms Sanderson states she had a rough night due to diarrhea. She has no pain. She is presently receiving a sponge bath in bed. Objective Vital Sign- Last 8 Hours Date Time Temp Pulse Resp B/P Pulse Ox O2 Delivery O2 Flow Rate FiO2 07/09/17 03:28 37.0 83 16 93/60 94 Room Air Intake and Output- Last 8 Hour 07/09/17 Cumulative From/Thru 07:00 07/04/17 07:25 - 07/09/17 06:20 Intake Total 1177 ml 9633 ml Output Total 4400 ml 96690 ml Balance -3223 ml -6992 ml Intake Oral 250 ml 2426 ml IV Total 927 ml 6676 ml Packed Cells 531 ml Output Urine Total 4400 ml 06775 ml # Bowel Movements 4 10 General: Alert, No Acute Distress Catheters: 3 Way Irrigation (slow drip, pink in tubing) Result Diagram: 07/09/17 0151 07/09/17 0151 Assessment & Plan Impression Gross hematuria Problems: Plan I have reduced her CBI to a very slow drip, almost to the off position We reviewed her requirement for blood transfusion - It's unclear if this is entirely due to her gross hematuria, as it does not appear terribly impressive We talked about possible cysto and TURBT today - I will re-evaluate her later today - If my schedule permits and she appears in need, she will likely go to OR, though this depends on her course today Resuscitation Status: DNR/DNI:Do Not Resuscitate/Intubate Oanh Ritter MD Jul 09, 2017 07:46
[2017-07-09] MEDS: [UNRECOGNIZED DRUG - OTHER] PO SCH (08:30)
[2017-07-09] MEDS: cefTRIAXone Inj 2,000 MG in Dextrose 5% Minibag Plus 50 ML IV SCH (11:29)
--- NOTE | 2017-07-09 12:00 | NUR ---
Pt off unit to OR gambling monitor notified
[2017-07-09] MEDS ORDERED: Lactated Ringer's 1,000 ML IV ONE (12:57)
--- NOTE | 2017-07-09 13:15 | PCM.PNMED ---
Subjective Date of Service Jul 09, 2017 Nancy Sanderson is a 76yoF with past medical history of tobacco dependence and peripheral arterial disease who arrived in the ED with a 2 week history of hematuria that began two weeks ago but has acutely worsened the last 2 days prior to admission. Today, patient states that she feels better than she did last night. She had bright green stool today and continues to have loose stools. Stool PCR was negative. Today, she denies headaches, visual changes, chest pain, shortness of breath, nausea, vomiting, abdominal pain and dysuria. She has been npo for cystoscopy and Turbt today. There were no acute events overnight. Per nursing, we are continuing with bladder irrigation and evidence of dark red fluid in barrios bag. Exam Vital Signs Vital Sign - Last Date Time Temp Pulse Resp B/P Pulse Ox O2 Delivery O2 Flow Rate FiO2 07/09/17 03:28 37.0 83 16 93/60 94 Room Air Intake and Output 07/08/17 07/08/17 07/09/17 Cumulative From/Thru 15:00 23:00 07:00 07/04/17 07:25 - 07/09/17 06:20 Intake Total 400 ml 1185 ml 1177 ml 9633 ml Output Total 750 ml 4400 ml 98673 ml Balance 400 ml 435 ml -3223 ml -6992 ml Intake Oral 520 ml 250 ml 2426 ml IV Total 400 ml 665 ml 927 ml 6676 ml Packed Cells 531 ml Output Urine Total 750 ml 4400 ml 57025 ml # Bowel Movements 1 4 10 Exam General: Patient is lying comfortably on bed, AAOX3, not in acute distress, cooperative and pleasant. HEENT: head normocephalic and atraumatic, PERRLA, EOMI, no scleral icterus, noninjected conjunctiva Neck: neck supple, non-tender, no lymphadenopathy, trachea midline, no JVD CV: regular rate and rhythm, s1 and s2 heard, radial pulses 2+ and equal bilaterally, no rubs, soft systolic murmur heard best on right upper sternal border, no edema Lungs: Clear to auscultation bilaterally, no wheezes, rales or rhonchi, no increased work of breathing Abdomen: normoactive bowel sounds on 4Q, soft, non-distended, non-tender to palpation, large palpable mass below the umbilicus Skin: warm and dry, : barrios catheter in place, with visible gross hematuria Musculoskeletal: 5/5 UE and LE strength bilaterally, full ROM bilaterally Neuro: Grossly neurologically intact, cranial nerves II through XII intact, no dyskinesia, dysmetria, or dysdiadochokinesia noted Psych: Normal mood and affect, appears to have some dementia at baseline IVs and Medications Medications Reviewed: Medications were reviewed in detail Lab and Diagnostics Laboratory Tests Test 07/08/17 17:06 07/09/17 01:51 Hemoglobin 8.9g/dL (12.0-15.6) 8.4g/dL (12.0-15.6) Hematocrit 26.7% (35.0-46.0) 25.1% (35.0-46.0) White Blood Count 7.5th/mm3 (3.8-10.1) Red Blood Count 2.73mil/mm3 (3.90-5.20) Mean Corpuscular Volume 91.9fL (81-100) Mean Corpuscular Hemoglobin 30.8pg (27.0-35.0) Mean Corpuscular Hemoglobin Concent 33.5% (32.0-37.0) Red Cell Distribution Width 15.7% (12.3-15.4) Platelet Count 185bil/L (150-400) Prothrombin Time 10.8sec (8.1-12.5) Prothromb Time International Ratio 1.01ratio Activated Partial Thromboplast Time 23.9sec (22.8-33.0) Sodium Level 139mEq/L (134-144) Potassium Level 3.8mEq/L (3.5-5.2) Chloride Level 105mEq/L (97-108) Carbon Dioxide Level 20mmol/L (18-29) Blood Urea Nitrogen 9mg/dL (8-27) Creatinine 0.49mg/dL (0.57-1.00) Estimat Glomerular Filtration Rate 175mL/min (>59) Glucose Level 70mg/dL (60-99) Calcium Level 8.5mg/dL (8.5-10.1) Total Bilirubin 0.5mg/dL (0.0-1.2) Aspartate Amino Transf (AST/SGOT) 21U/L (0-50) Alanine Aminotransferase (ALT/SGPT) 22U/L (0-32) Alkaline Phosphatase 67U/L (25-165) Total Protein 3.8g/dL (6.4-8.4) Albumin 2.4g/dL (3.4-5.0) Microbiology 07/04/17 Blood Culture - Preliminary, Resulted No growth at 2 days; culture examined... 07/06/17 Campylobacter (PCR) - Final, Complete Not Detected 07/06/17 Clostridium difficile Toxin A&B (M) - Final, Complete Not Detected 07/06/17 Plesiomonas shigelloides (PCR) - Final, Complete Not Detected 07/06/17 Salmonella (PCR)(ARYA) - Final, Complete Not Detected 07/06/17 Yersinia enterocolitica (PCR) - Final, Complete Not Detected 07/06/17 Vibrio Species (PCR) - Final, Complete Not Detected 07/06/17 Vibrio Cholerae (PCR) - Final, Complete Not Detected 07/06/17 Enteroaggregative E. coli (PCR) - Final, Complete Not Detected 07/06/17 Enteropathogenic E. coli (PCR) - Final, Complete Not Detected 07/06/17 Enterotoxigenic E. coli (PCR) - Final, Complete Not Detected 07/06/17 E. coli Shiga-like Toxin (PCR) - Final, Complete Not Detected 07/06/17 Escherichia coli 0157 (PCR) - Final, Complete Not Detected 07/06/17 Enteroinvasive E. coli/Shigella PCR - Final, Complete Not Detected 07/06/17 Cryptosporidium (PCR) - Final, Complete Not Detected 07/06/17 Cyclospora cayetanensis (PCR) - Final, Complete Not Detected 07/06/17 Entamoeba histolytica (PCR) - Final, Complete Not Detected 07/06/17 Giardia lamblia (PCR) - Final, Complete Not Detected 07/06/17 Adenovirus Type F 40/41 (PCR) - Final, Complete Not Detected 07/06/17 Astrovirus (PCR) - Final, Complete Not Detected 07/06/17 Norovirus (PCR) - Final, Complete Not Detected 07/06/17 Rotavirus A (PCR) - Final, Complete Not Detected 07/06/17 Sapovirus I/II/IV/V (PCR) - Final, Complete 07/04/17 Urine Culture - Final, Complete No growth (<1,000 organisms/mL) Result Diagram: 07/09/17 0151 07/09/17 0151 X-Rays, CTs and MRIs CT ABDOMEN AND PELVIS WITH CONTRAST IMPRESSION: Large heterogeneous bladder mass which could represent hematoma however there is superimposed left posterior focus of increased attenuation which is suspicious for enhancing bladder wall mass/malignancy. Recommend further evaluation with cystoscopy. Minimal intrahepatic bile duct dilatation. Please correlate clinically with LFTs. Cholelithiasis. Numerous subcentimeter pancreatic cystic foci, not well evaluated by CT. Recommend further evaluation with dedicated pancreatic protocol MRI after the patient's acute episode has resolved Cystic focus in the right adnexa although this is adjacent to the bladder. Unclear if this represents bladder diverticulum versus right ovarian cystic lesion. Further assessment with pelvic ultrasound in the nonemergent setting could be performed. Approved by: Ki Mcmullen M.D. on 07/04/2017 at 11:03 Assessment & Plan Yolanda Sanderson is a 76yoF with past medical history of tobacco dependence and peripheral arterial disease who arrived in the ED with a 2 week history of hematuria that began two weeks ago but has acutely worsened the last 2 days prior to admission. Acute blood loss anemia secondary to Acute hematuria, present on admission - CT Imaging shows some contrast enhancement which could be consistent with possible mass, given gross hematuria with significant blood loss from a simple urinary tract infection this is likely a mass with friable overlying tissue - White blood cell count of 7.5 with no shift, temperature of 36 on admission, pro-calcitonin 0.03 not consistent with overt sepsis - Records from urgent care clinic note the patient was tested for possible UTI with culture resulting in pansensitive Escherichia coli placed on Bactrim DS - Patient was started on Rocephin in the ED, Continue Rocephin 2000 mg daily, Urine cultures pending. Thus far show no growth - Urology was consulted in the ED. This case was discussed extensively with Dr. Garsia who initially saw patient on 07/04/17. Urology will continue to follow. Per Urology, Ditropan p.r.n. and Pyridium p.r.n. have been ordered. - Recommended Barrios catheter to continuous bladder irrigation and irrigating the Barrios catheter p.r.n. blood clots, nondraining Barrios, or bloody drainage from the Barrios - Hemoglobin dropped from 10.2 to 7.6 over several hours around admission. Transfused 2 units PRBCs, hemoglobin improved to 11.5 after transfusion but his symptoms down trended again to 7.6 and a single unit of PRBCs given - Hemoglobin and hematocrit checked every 12 hours - Patient typed and screened in ED, currently holding 1 units PRBCs, transfusion threshold is with hemoglobin less than 8 given history of peripheral arterial disease and family history of coronary artery disease - Dr. Ritter of Urology will take patient to OR today for cystoscopy and Turbt. Acute hypotension secondary to acute blood loss anemia, present on admission, stable - Patient's blood pressure on presentation was 70/29 which improved to 92/54 with 2 L of normal saline IV fluids given in the ED - Patient had lactic acid of 2.9 which corrected with fluids to 1.2 over 7 hours while in the ED this is likely secondary to poor perfusion due to hypotension more so than sepsis - Was started on LR at 100 mils per hour but that has been discontinued - Transfusion protocol described above secondary to acute blood loss anemia Acute Leukocytosis likely secondary to urinary tract infection, ongoing -WBC increased to 15.4 after admission while on antibiotics which subsequently down trended to 9 on July 08 -Patient is being treated with 2 g ceftriaxone for presumed UTI -investigating possible sources of infection -Patient had diarrhea but stool PCR has been negative -no cough, SOB, and lung sounds were clear bilaterally Acute bladder mass noted on CT imaging, present on admission, under evaluation - Patient has a 50 year history of tobacco dependence but does not carry any history of familial cancer - Imaging shows some contrast enhancement which could be consistent with possible mass - Given gross hematuria with significant blood loss from a simple urinary tract infection this is likely a mass with friable overlying tissue - Urology was consulted - Dr. Ritter of Urology will take patient to OR today for cystoscopy and Turbt. Tobacco dependency, present on admission, stable - Nicotine patch available when necessary DVT prophylaxis: Anticoagulation is contraindicated given gross hematuria and acute blood loss anemia GI prophylaxis: None indicated CODE STATUS is DNR/DNI this was discussed with patient's daughter in the room as well as the patient directly Disposition: Patient is still having significant bleeding from the bladder and will go to surgery later today. Pain Evaluation: Adequate Pain Control GI Prophylaxis: Not indicated VTE Mechanical Devices: Intermittant Pneumatic CD Resuscitation Status: DNR/DNI:Do Not Resuscitate/Intubate Attending Statement The patient was seen and examined together with Dr. Huang on 07/09/2017 and I have added additional information to the note above. Hoda Huang DO Jul 09, 2017 07:47 Miriam Hauser DO Jul 09, 2017 16:51
[2017-07-09] MEDS ORDERED: Lactated Ringer's 500 ML IV PRN (13:23)
[2017-07-09] MEDS ORDERED: Lactated Ringer's 1,000 ML IV SCH (13:23)
--- NOTE | 2017-07-09 13:23 | PCM.HPANE ---
Patient Data Surgeon Admitting Provider:Solitario Chan MD Attending Provider:Miriam Hauser DO Primary Care Physician:Petros Tidwell MD Other Provider: Reason for Visit Gross Hematuria/Sepsis/Bladder Mass New Ht/WT & BMI Height (Feet): 5 Height (Inches): 6.00 Weight (Kilograms): 53.400 Body Mass Index 19.63 Allergies Coded Allergies: Pork (Verified Allergy, Unknown, 07/04/17) banana (Verified Allergy, Unknown, 07/04/17) peanut (Verified Allergy, Unknown, 07/04/17) shellfish derived (Verified Allergy, Unknown, 07/04/17) tree nut (Verified Allergy, Unknown, 07/04/17) wheat (Verified Allergy, Unknown, 07/04/17) Past Anesthesia History Anesthesia History: Denies:: Abnormal Airway, Anesthesia Reactions, Difficult Intubation, Fam Anesthesia Reaction, Fam Malignant Hypertherm, Malignant Hyperthermia Diabetes History Hx Diabetes?: No MRSA MRSA: No Medications Reported Medications Sulfamethoxazole/Trimeth 800-160 mg (Bactrim DS)1 Each Tablet1 Each PO BID x 7 days 07/04/17 Bifidobacterium Infantis (Digestive Probiotic)1 Each Capsule1 Each PO DAILY 07/04/17 Aspirin 325 Mg [id number] Mg PO DAILY 07/04/17 Multivits-Min/FA/Lycopene/Lut (Centrum Silver Tablet)1 Each Tablet1 Each PO DAILY 07/04/17 Discontinued Reported Medications Multivitamins-Expunged Drug, Do Not Renew! 1 Each Tab.chew1 Each PO DAILY 02/21/10 History History of ENT Problems?: No HEENT History: Denies:: Abnormal Airway Cataracts Difficult Intubation Dysphagia Glaucoma Hearing Problem Sinus Problem TMJ Denture Type: Full- Upper Full- Lower Teeth Condition: Within Normal Limits Hx of Heart Problems?: No Cardiovascular History: Denies:: AICD Abdominal Aortic Aneurism Atrial Fibrillation Cardiac Surgery Chest Pain Congestive Heart Failure Coronary Artery Disease Edema Heart Murmur Hypertension Irregular Heartbeat Pacemaker Peripheral Vascular Rheumatic Fever Thrombophlebitis Valvular Heart Disease Hx of Respiratory Problem?: No Respiratory History: Denies:: Asthma COPD Chest Surgery Cough Dyspnea Emphysema Hemoptysis Oxygen Administration Pneumonia Pulmonary Embolism Tuberculosis Use of C-PAP Machine Use of Inhalers / NEBS Hx Neurologic Problems?: Yes Other Neurological Pertinent: PVD s/p bilateral legs angioplasty Hx of GI Problems?: No Hx of Problems?: Yes Genitourinary History: Positive for:: Urinary Tract Infection (recurrent UTI's ) Other Pertinent History: hx bladder cyst removed current hematuria Female Hx: Denies:: Currently Endometriosis Pelvic Inflammatory Problems with Breasts? Hx Musculoskeletal Problems?: Yes Musculoskeletal History: Positive for:: Back Injury (herniated disks) Hx of Psycho/Social Problems?: Yes Psycho Social History: Positive for:: Anxiety (remote hx of) Denies:: Bipolar Disorder Hx Depression Suicide Attempt Hx Surgeries?: Yes (Herniated lumbar disc; angioplasty L&R legs; bladder cyst rem.) Hx Any Other Health Problems?: Yes Other History: Positive for:: Hospitalization Denies:: Cancer Thyroid Disease History Blood Transfusions: Positive for:: Accept Blood Products? 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 Hx Alcohol Use: NoHx Substance Use: No Smoking Status: Current Every Day Smoker Have You Smoked inLast 12 mo: YesApprox How Many Cigarettes/day: 7-8/day Stop/Bang Treated for Sleep Apnea?: No Do You Have a CPAP Machine?: No S-Snoring: Do You Snore Loudly: No T-Tired: feel tired, fatigued: Yes O-Obsered: Observed not breath: No P-Blood Pressure: treated: No B- Body Mass Index > 35 kg/m2: No A- Age over 50: Yes N- Neck Large Circumference: No G- Gender Male: No UMU Total Score: 1 UMU Risk Assessment: Low Risk, <3 Yes Risk Assessment Category Category 1A: Patient has history of documented sleep apnea, and HAS NOT received any narcotic, sedative or anesthesia administration during this stay. Category 1B: Patient has history of documented sleep apnea, and HAS received any narcotic , sedative or anesthesia administration during this stay Category 2: Patient has SUSPECTED Obstructive Sleep Apnea, and HAS received any narcotic , sedative or anesthesia administration during this stay. Category 3: Patient has SUSPECTED Obstructive Sleep Apnea and HAS NOT received narcotic, sedative or anesthesia administration during this stay. Category 4: Outpatient in Procedural Areas with known sleep apnea or who screen positive for High Risk via the STOP/BANG questionnaire. Exam Exam Vital Signs Vital Signs Date Time Temp Pulse Resp B/P Pulse Ox O2 Delivery O2 Flow Rate FiO2 07/09/17 10:30 74 07/09/17 09:31 37.2 86 16 93/45 96 Room Air General Appearance: Alert, Oriented X3, Cooperative HEENT/AIRWAY: MP 1 Lungs: Clear to Auscultation, Normal Air Movement Heart: Exam Unremarkable Meds/Labs/Diagnostics Admission Meds Current Medications Dronabinol (Marinol) 2.5 mg BIDAC PO Last administered on 07/08/17t 16:51; Start 07/08/17 at 12:15 Labs Test 07/04/17 07:44 07/04/17 17:36 07/04/17 20:44 07/05/17 03:25 Hemoglobin A1c 5.6% (4.8-5.6) Phosphorus Level 3.2mg/dL (2.5-4.9) Troponin T 0.010ug/L (0.0-0.011) Hold Humphries Top Tube Received (Received) Urine Color Bloody (YELLOW) Urine Appearance Turbid (CLEAR,HAZY) Urine pH 7.0 (5.0-8.0) Urine Specific [place] 1.020 (1.003-1.035) Urine Protein 300mg/dL (NEG,TRACE) Urine Glucose (UA) Negativemg/dL (NEGATIVE) Urine Ketones Tracemg/dL (NEGATIVE) Urine Occult Blood Large (NEGATIVE) Urine Nitrite (NEGATIVE) Urine Bilirubin Negative (NEGATIVE) Urine Urobilinogen Normalmg/dL (NORMAL) Urine Leukocyte Esterase Negative (NEGATIVE) Urine RBC >50/hpf (0-2) Urine WBC 6-10/hpf (0-5) Urine Epithelial Cells Occasional/hpf (NONE-MOD) Urine Crystals None seen (NONE SEEN) Urine Bacteria None/hpf (NONE-FEW) Urine Hyaline Casts None/lpf (NONE) Urine Granular Casts None seen (NONE SEEN) Urine Waxy Casts None seen (NONE SEEN) Urine Red Blood Cell Casts None seen (NONE SEEN) Urine White Blood Cell Casts None seen (NONE SEEN) Urine Mucus None seen (None Seen) Urine Trichomonas None seen (NONE SEEN) Urine Yeast None (NONE SEEN) Urinalysis Comment None Urine Culture Reflexed Indicated Magnesium Level 1.6mg/dL (1.6-2.6) Test 07/08/17 05:02 07/09/17 01:51 Neutrophils (%) (Auto) 73.6% (40-74) Lymphocytes (%) (Auto) 12.1% (14-46) Monocytes (%) (Auto) 13.6% (4-12) Eosinophils (%) (Auto) 0.2% (0-5) Basophils (%) (Auto) 0.3% (0-3) Lactic Acid Level 0.9mmol/L (0.4-2.0) Procalcitonin 0.11ng/mL (0.00-0.08) White Blood Count 7.5th/mm3 (3.8-10.1) Red Blood Count 2.73mil/mm3 (3.90-5.20) Hemoglobin 8.4g/dL (12.0-15.6) Hematocrit 25.1% (35.0-46.0) Mean Corpuscular Volume 91.9fL (81-100) Mean Corpuscular Hemoglobin 30.8pg (27.0-35.0) Mean Corpuscular Hemoglobin Concent 33.5% (32.0-37.0) Red Cell Distribution Width 15.7% (12.3-15.4) Platelet Count 185bil/L (150-400) Prothrombin Time 10.8sec (8.1-12.5) Prothromb Time International Ratio 1.01ratio Activated Partial Thromboplast Time 23.9sec (22.8-33.0) Sodium Level 139mEq/L (134-144) Potassium Level 3.8mEq/L (3.5-5.2) Chloride Level 105mEq/L (97-108) Carbon Dioxide Level 20mmol/L (18-29) Blood Urea Nitrogen 9mg/dL (8-27) Creatinine 0.49mg/dL (0.57-1.00) Estimat Glomerular Filtration Rate 175mL/min (>59) Glucose Level 70mg/dL (60-99) Calcium Level 8.5mg/dL (8.5-10.1) Total Bilirubin 0.5mg/dL (0.0-1.2) Aspartate Amino Transf (AST/SGOT) 21U/L (0-50) Alanine Aminotransferase (ALT/SGPT) 22U/L (0-32) Alkaline Phosphatase 67U/L (25-165) Total Protein 3.8g/dL (6.4-8.4) Albumin 2.4g/dL (3.4-5.0) Plan Impression Patient chart reviewed, patient interviewed and anesthestic plan with risks, benefits, and alternatives discussed, and informed consent obtained. ASA Physical Status: ASA3 Severe Disease Anesthetic Plan: GA Bene/Risks/Altern/Consents: Yes HP Complete Prior to Induction: Yes Jamir Thakkar DO Jul 09, 2017 12:01
[2017-07-09] MEDS ORDERED: EPHEDrine Sulfate 50 mg/mL Inj IVPUSH PRN (13:25)
[2017-07-09] MEDS ORDERED: fentaNYL-PF 50 mCg/mL 2 mL Inj IVPUSH PRN (13:25)
[2017-07-09] MEDS ORDERED: Atropine 0.4 mg/mL Inj IVPUSH PRN (13:25)
[2017-07-09] MEDS ORDERED: MetoCLOpramide 5 mg/mL 2 mL Inj IVPUSH PRN (13:25)
[2017-07-09] MEDS ORDERED: HYDROmorphone 1 mg/mL Inj IVPUSH PRN (13:25)
[2017-07-09] MEDS ORDERED: Dexamethasone 4 mg/mL Inj IVPUSH PRN (13:25)
[2017-07-09] MEDS ORDERED: Labetalol 5 mg/mL 20 mL Inj IV PRN (13:25)
[2017-07-09] MEDS ORDERED: Ondansetron 2 mg/mL 2 mL Inj IVPUSH PRN (13:25)
[2017-07-09] MEDS ORDERED: hydrALAZINE 20 mg/mL Inj IVPUSH PRN (13:25)
[2017-07-09] MEDS ORDERED: Phenylephrine 10,000 mCg/mL Inj IVPUSH PRN (13:25)
--- NOTE | 2017-07-09 14:59 | PCM.ANEP1 ---
Post Anesthesia PACU Phase 1 Assessment Vital Signs Vital Signs Date Time Temp Pulse Resp B/P Pulse Ox O2 Delivery O2 Flow Rate FiO2 07/09/17 14:50 81 16 112/59 94 Room Air 07/09/17 14:34 36.3 98 15 100/64 98 Room Air 07/09/17 14:30 102 14 114/70 98 Room Air 07/09/17 14:25 104 15 105/56 99 Simple Mask 8 07/09/17 14:20 101 14 97/59 100 Simple Mask 8 07/09/17 14:17 36.5 98 17 96/54 100 Simple Mask 8 07/09/17 10:30 74 07/09/17 09:31 37.2 86 16 93/45 96 Room Air Anesthetic Administered: GA Level of Alertness: Drowsy, not talking PRADO's with Equal Strength: Yes Pain: No Pain Scale Score: 7 Nausea or Vomiting: No CV Function & Hydration Stable: Yes Airway Device: Oxygen Delivery: Simple Mask Lungs: Clear to Auscultation, Normal Air Movement PACU Phase 2 Assessment Complications: No Follow up Care: N/A Patient Instructions Provided: N/A Jamir Thakkar DO Jul 09, 2017 14:59
[2017-07-09] MEDS ORDERED: Potassium Chloride 20 mEq SR Tablet PO ONE (15:40)
--- NOTE | 2017-07-09 17:51 | NUR ---
From PACU elderly female returning to room 2030 from PACU at about 1500. pt alert and oriented. denies pain or discomfort. abrrios patent with pale yellow urine. piv is sl. vss. noted slight decreased body temperature. pt given warm blankets. pt started with ice chips tolerated well and given apple juice. denied nausea. care continues.
--- NOTE | 2017-07-09 23:35 | OP ---
[address] [address] OPERATIVE REPORT PATIENT: TRACI RO : 1940 MR#: [id number] ADMIT: 07/04/2017 JOB ID: [id number] DATE OF SURGERY: 07/09/2017 SURGEON: Oanh Ritter MD PREOPERATIVE DIAGNOSIS(ES): Gross hematuria and presumed bladder tumor on CT scan. POSTOPERATIVE DIAGNOSIS(ES): Bladder tumor. PROCEDURE PERFORMED: 1. Pelvic exam under anesthesia. 2. Cystoscopy and clot evacuation. 3. Transurethral resection of bladder tumor (over 5 cm). 4. Normal pelvic exam with mobile bladder and no abnormal masses. ANESTHESIA: General. ESTIMATED BLOOD LOSS: 25 mL. DRAINS: An 18-Djiboutian Ramos catheter. SPECIMENS: 1. Bladder tumor. 2. Deep base of bladder tumor. COMPLICATIONS: None. CONDITION: Stable. INDICATION FOR PROCEDURE: The patient is a 76-year-old woman who was admitted last week for gross hematuria. She has undergone multiple blood transfusions for anemia. The patient and her family were eager to proceed with cystoscopy and possible transurethral resection of bladder tumor. Therefore, she wished to forward with this today. DESCRIPTION OF PROCEDURE: After informed consent was obtained, the patient was taken to the operating room. A time-out was performed identifying correct patient, surgical site, and procedure. General anesthesia was smoothly induced. She was given intravenous antibiotics just prior to the start of the procedure. She was placed in the lithotomy position and all pressure points were identified and appropriately padded. A bimanual pelvic exam was performed. The findings were aforementioned and normal. Her genitals were then prepped and draped in usual sterile fashion. A 26-Djiboutian resectoscope was then placed under direct vision into the bladder. Visualization was obscured due to the gross hematuria as well as clot. This was improved with the Ellik, which evacuated clot. Next, the bladder was systematically inspected. Both ureteral orifices were seen in orthotopic position. There was a large bladder tumor at the posterior base of the bladder somewhat in the midline, though favoring the left side of the bladder. The bladder was seen to be fairly capacious. The tumor was resected in piecemeal fashion. The overall surface area of tumor in the bladder was over 5 cm. This was resected with a 24-Djiboutian loop. It should be noted that the tumor was extremely vascular. Cold cup biopsy forceps were then used to take specimens of the base of tumor and these were passed off separately. The base was cauterized with the loop. It should be noted that surrounding the tumor was a quite dense patch of hypervascularity and telangiectasia. There was quite a bit of this hypervascularity and tortuous blood vessels especially at the base of the bladder. The base of the tumor as well as the surrounding area and most of the hypervascular tissues were cauterized. There was excellent hemostasis at the end of procedure and the output was crystal clear. An 18-Djiboutian Ramos catheter with 10 cc of sterile water were used to inflate the balloon and it was set to dependent drainage. The patient appeared to tolerate the procedure well without apparent complication. She reversed anesthesia and was taken to the PACU in good stable condition. JOHN
[2017-07-10] VITALS (7 sets, daily range): BP systolic 91–106; BP diastolic 56–69; PULSE 74–97; RESP 14–18; O2SAT 94–97
[2017-07-10] MEDS: Sodium Chloride LOK Flush 10 mL Syringe IVFLUSH SCH ×3 (00:37→17:00)
[2017-07-10 04:22] LABS: BASOPHILS % (AUTO) 0.2 % (0-3); EOSINOPHILS % (AUTO) 0.1 % (0-5); MONOCYTES % (AUTO) 12.5 % (4-12); Mean Corpuscular Hemoglobin 29.9 pg (27.0-35.0); Mean Corpuscular Volume 92.6 fL (81-100); NEUTROPHILS % (AUTO) 73.6 % (40-74); Platelet Count 233 bil/L (150-400)
--- NOTE | 2017-07-10 04:57 | NUR ---
barrios indwelling urinary catheter has been patent, draining 350 cc yellow urine this shift. Denies any pain or nausea. Drank most of milkshake family brought in last night, although has declined further PO intake since. Initially declined SCD's but decided later to accept and has had them on throughout the night. Slept much of the night. Afebrile. SBP has been 94-111.
[2017-07-10] MEDS: [UNRECOGNIZED DRUG - OTHER] PO SCH (08:08)
[2017-07-10] MEDS: cefTRIAXone Inj 2,000 MG in Dextrose 5% Minibag Plus 50 ML IV SCH (08:08)
--- NOTE | 2017-07-10 13:46 | PCM.PNMED ---
Subjective Date of Service Jul 10, 2017 Nancy Sanderson is a 76yoF with past medical history of tobacco dependence and peripheral arterial disease who arrived in the ED with a 2 week history of hematuria that began two weeks ago but has acutely worsened the last 2 days prior to admission. This morning, patient states that she feels well overall. She feels that she is ready to go home. She denies any headaches, visual changes, chest pain, shortness of breath, nausea, vomiting, abdominal pain and dysuria. She feels ready to ambulate. There were no acute events overnight. Indwelling Barrios catheter has been patent and draining yellow urine. Exam Vital Signs Vital Sign - Last Date Time Temp Pulse Resp B/P Pulse Ox O2 Delivery O2 Flow Rate FiO2 07/10/17 03:31 36.8 88 16 96/59 94 Room Air 07/09/17 14:25 8 Intake and Output 07/09/17 07/09/17 07/10/17 Cumulative From/Thru 15:00 23:00 07:00 07/04/17 07:25 - 07/10/17 06:47 Intake Total 1354 ml 240 ml 1755 ml 72386 ml Output Total 165 ml 500 ml 350 ml 42479 ml Balance 1189 ml -260 ml 1405 ml -4658 ml Intake Oral 240 ml 600 ml 3266 ml IV Total 1354 ml 1155 ml 9185 ml Packed Cells 531 ml Output Urine Total 140 ml 500 ml 350 ml 73495 ml Estimated Blood Loss 25 ml 25 ml # Bowel Movements 5 15 Exam General: Patient is lying comfortably on bed, AAOX3, not in acute distress, cooperative and pleasant. HEENT: head normocephalic and atraumatic, PERRLA, EOMI, no scleral icterus, noninjected conjunctiva Neck: neck supple, non-tender, no lymphadenopathy, trachea midline, no JVD CV: regular rate and rhythm, s1 and s2 heard, radial pulses 2+ and equal bilaterally, no rubs, soft systolic murmur heard best on right upper sternal border, no edema Lungs: Clear to auscultation bilaterally, no wheezes, rales or rhonchi, no increased work of breathing Abdomen: normoactive bowel sounds on 4Q, soft, non-distended, non-tender to palpation, Skin: warm and dry, : barrios catheter in place, with visible gross hematuria Musculoskeletal: 02/23 UE and LE strength bilaterally, full ROM bilaterally Neuro: Grossly neurologically intact, cranial nerves II through XII intact, no dyskinesia, dysmetria, or dysdiadochokinesia noted Psych: Normal mood and affect, appears to have some dementia at baseline IVs and Medications Medications Reviewed: Medications were reviewed in detail Lab and Diagnostics Result Diagram: 07/10/17 0350 07/10/17 0350 X-Rays, CTs and MRIs CT ABDOMEN AND PELVIS WITH CONTRAST IMPRESSION: Large heterogeneous bladder mass which could represent hematoma however there is superimposed left posterior focus of increased attenuation which is suspicious for enhancing bladder wall mass/malignancy. Recommend further evaluation with cystoscopy. Minimal intrahepatic bile duct dilatation. Please correlate clinically with LFTs. Cholelithiasis. Numerous subcentimeter pancreatic cystic foci, not well evaluated by CT. Recommend further evaluation with dedicated pancreatic protocol MRI after the patient's acute episode has resolved Cystic focus in the right adnexa although this is adjacent to the bladder. Unclear if this represents bladder diverticulum versus right ovarian cystic lesion. Further assessment with pelvic ultrasound in the nonemergent setting could be performed. Approved by: Ki Mcmullen M.D. on 07/04/2017 at 11:03 Assessment & Plan Yolanda Sanderson is a 76yoF with past medical history of tobacco dependence and peripheral arterial disease who arrived in the ED with a 2 week history of hematuria that began two weeks ago but has acutely worsened the last 2 days prior to admission. Acute blood loss anemia secondary to Acute hematuria, present on admission - CT Imaging shows some contrast enhancement which could be consistent with possible mass, given gross hematuria with significant blood loss from a simple urinary tract infection this is likely a mass with friable overlying tissue - White blood cell count of 7.5 with no shift, temperature of 36 on admission, pro-calcitonin 0.03 not consistent with overt sepsis - Records from urgent care clinic note the patient was tested for possible UTI with culture resulting in pansensitive Escherichia coli placed on Bactrim DS - Patient was started on Rocephin in the ED, Continue Rocephin 2000 mg daily, Urine cultures pending. Thus far show no growth - Urology was consulted in the ED. This case was discussed extensively with Dr. Garsia who initially saw patient on 07/04/17. Urology will continue to follow. Per Urology, Ditropan p.r.n. and Pyridium p.r.n. have been ordered. - Recommended Barrios catheter to continuous bladder irrigation and irrigating the Barrios catheter p.r.n. blood clots, nondraining Barrios, or bloody drainage from the Barrios. Patient now has an indwelling barrios s/p bladder tumor resection. Barrios has yellow urine - Hemoglobin dropped from 10.2 to 7.6 over several hours around admission. Transfused 2 units PRBCs, hemoglobin improved to 11.5 after transfusion but her symptoms down trended again to 7.6 and a single unit of PRBCs given - Hemoglobin and hematocrit checked every 12 hours - Patient typed and screened in ED, currently holding 1 units PRBCs, transfusion threshold is with hemoglobin less than 8 given history of peripheral arterial disease and family history of coronary artery disease - Dr. Ritter of Urology took patient to the OR on 07/09/17 for Cystoscopy and clot evacuation as well as Transurethral resection of bladder tumor (over 5 cm) . It was noted that surrounding the tumor was a quite dense patch of hypervascularity and telangiectasia -Patient will be discharged to home with barrios catheter and will likely have it for about a week -She will follow up with urology. Pathology results are pending Acute hypotension secondary to acute blood loss anemia, present on admission, stable - Patient's blood pressure on presentation was 70/29 which improved to 92/54 with 2 L of normal saline IV fluids given in the ED - Patient had lactic acid of 2.9 which corrected with fluids to 1.2 over 7 hours while in the ED this is likely secondary to poor perfusion due to hypotension more so than sepsis - Was started on LR at 100 mils per hour but that has been discontinued - Transfusion protocol described above secondary to acute blood loss anemia Acute Leukocytosis likely secondary to urinary tract infection, resolved -WBC increased to 15.4 after admission while on antibiotics which subsequently down trended to 9 on July 08 -Patient is being treated with 2 g ceftriaxone for presumed UTI. Will stop ceftriaxone today on Day 6 -investigating possible sources of infection -Patient had diarrhea but stool PCR has been negative -no cough, SOB, and lung sounds were clear bilaterally Acute bladder mass noted on CT imaging, present on admission, under evaluation - Patient has a 50 year history of tobacco dependence but does not carry any history of familial cancer - Imaging shows some contrast enhancement which could be consistent with possible mass - Given gross hematuria with significant blood loss from a simple urinary tract infection this is likely a mass with friable overlying tissue - Urology was consulted - Dr. Ritter of Urology took patient to OR for cystoscopy and Turbt. Tobacco dependency, present on admission, stable - Nicotine patch available when necessary DVT prophylaxis: Anticoagulation is contraindicated given gross hematuria and acute blood loss anemia GI prophylaxis: None indicated CODE STATUS is DNR/DNI this was discussed with patient's daughter in the room as well as the patient directly Disposition: Patient will ambulate today and will likely discharge tomorrow if she continues to remain stable. Pain Evaluation: Adequate Pain Control GI Prophylaxis: Not indicated VTE Mechanical Devices: Intermittant Pneumatic CD Resuscitation Status: DNR/DNI:Do Not Resuscitate/Intubate Attending Statement The patient was seen and examined together with Dr. Huang on 07/10/17 and I have added additional information to the note above. Hoda Huang DO Jul 10, 2017 07:50 Miriam Hauser DO Jul 12, 2017 11:40
--- NOTE | 2017-07-10 14:48 | NUR ---
Left calf pain 1350 MD notified of pt c/o left calf cramping. Started about 20 minutes ago and feels like "heaven horse". Good ROM, no swelling or redness assessed. Pt walked this am prior and attempted to walk but not much relief with ambulation. Denies SOB or chest pain. SCDs only due to prior low trending H&H and prior hematuria but pt wore SCD's all night. Labs stable. Immodium given for x2 episodes of diarrhea today with negative PCR 07/06. Tramadol given for calf. Per MD to continue to monitor and provide tramadol prn. Encouraging po intake and activity OOB as tolerated.
[2017-07-11 00:05] VITALS: PULSE 73
[2017-07-11] MEDS: Sodium Chloride LOK Flush 10 mL Syringe IVFLUSH SCH ×2 (00:36→07:52)
[2017-07-11 03:15] VITALS: BP 103/65; PULSE 79; RESP 18; O2SAT 97
[2017-07-11 04:12] LABS: BASOPHILS % (AUTO) 0.4 % (0-3); EOSINOPHILS % (AUTO) 4.2 % (0-5); MONOCYTES % (AUTO) 11.8 % (4-12); Mean Corpuscular Hemoglobin 30.7 pg (27.0-35.0); Mean Corpuscular Volume 92.1 fL (81-100); NEUTROPHILS % (AUTO) 62.7 % (40-74); Platelet Count 243 bil/L (150-400)
--- NOTE | 2017-07-11 06:08 | NUR ---
GI/ Pt continues to have green, mucosy diarrhea x4 this shift. Administered PRN Imodium and effective at decreasing frequency of stool. Pt denies CP, SOB or Pain this shift. VSS and Tele SR
[2017-07-11 07:40] VITALS: BP 117/65; PULSE 79; RESP 14; O2SAT 98
[2017-07-11] MEDS: [UNRECOGNIZED DRUG - OTHER] PO SCH (07:51)
--- NOTE | 2017-07-11 10:15 | NUR ---
Rounds 0940 MD notified of continued frequent loose stools 07/10 as well as this am. to review probiotic needs. To continue to monitor, encouraging po fluids.
[2017-07-11 10:55] VITALS: PULSE 80
--- NOTE | 2017-07-11 11:30 | NUR ---
Social Work: Discharge/Multidisciplinary Rounds D: Pt discussed in multidisciplinary rounds; the patient is medically stable for discharge but is going home with a foly catheter. The patient has expressed some concern about the management of this and will require some extra teaching and education at home. The patient is homebound and provider has placed a CM order to arrange for HH. RN ER acknowledges order. RN ER met with the patient and her spouse at bedside to confirm discharge plan. They both agree that the patient needs home health for nursing care. [facility] CHOICE LIST provided. Patient's preference is for [facility]. They are expecting an RN to come out to see them tomorrow. t/c to Alexis Motta with [facility] to provide referral. Access provided. He will inquire whether they can get an RN out to see the patient tomorrow and confirm with RN ER. He does not feel that this would be an issue but will need to run patient's benefits today and get her on the schedule. He will come to pickup the F and see the patient prior to discharge. Copy on chart A: Pt who is homebound and will require a visiting nurse for ongoing education and catheter management along with vital checks and med management. P: Anticipate pt to discharge home via POV with [facility] to follow. RN ER to confirm with [facility] if they can see the patient tomorrow for catheter management. SREEDHAR Tyler
[2017-07-11 12:17] VITALS: BP 106/55; PULSE 79; RESP 16; O2SAT 98
--- NOTE | 2017-07-11 12:46 | PCM.DIMED ---
Hoda Huang DO 07/11/17 1246: Discharge Instructions Date of Service Jul 11, 2017 Dates of Hospitalization Jul 04, 2017 at 13:02 Discharge Diagnosis Discharge Diagnosis Papillary Urothelial Carcinoma Acute blood loss anemia secondary to Acute hematuria Acute hypotension secondary to acute blood loss anemia Acute Leukocytosis likely secondary to urinary tract infection, resolved Acute bladder mass noted on CT imaging Tobacco dependency Diet Discharge Diet: No restrictions Activity Discharge Activity: No restrictions Call your provider Call your provider for: Fever or Chills, Shortness of breath, Bleeding, Chest pain, Vomitting, Excessive diarrhea, Weakness (unilateral) Patient Instructions Patient Instructions You came into the emergency room because you are noticing blood in your urine. We did a CT scan which showed that there was a mass in your bladder. We consulted urology, they are the doctors who focus on surgical and medical diseases of the urinary tract system. They suggested that we irrigate the bladder. Throughout your stay, we monitored your blood counts and it dropped low enough that we had to give you a total of 3 units of blood. Urology then decided that they would take you to the operating room and remove the mass. You remained stable after surgery and your blood counts also remained stable. You currently have a barrios catheter in place and will likely keep it for about a week, per recommendations of urology. Home Health nursing will come to your house several days a week to help you manage your barrios catheter. Throughout your hospital stay, we also treated you with antibiotics for a urinary tract infection As we discussed, the pathology results came back and the bladder mass turned out to be papillary urothelial carcinoma. We talked about how urology will discuss further management with you during your appointment. You will follow-up with urology within a week. As for the diarrhea, we are going to stop Alligne and start you on a different probiotic called Florastor Follow-up plan Follow-up with Urology in a week. Follow-up with primary care provider in 2 weeks. Follow-up Provider: Brando Garsia MD Follow-up with PCP in: 1 week Provider: Petros Tidwell MD Follow-up in: 2 weeks Additional Information Patient will be followed by home health nursing who will assist patient with management of Barrios catheter, vital checks, and medication management. Miriam Hauser DO 07/11/17 1609: Discharge Instructions Attending's Statement The patient was seen and examined together with Dr. Huang on 07/11/17 and I agree with the history, exam and plan as outlined in the note above. Hoda Huang DO Jul 11, 2017 12:46 Miriam Hauser DO Jul 11, 2017 16:09
[2017-07-11] MEDS ORDERED: SACC250C8 PO (12:52)
[2017-07-11] MEDS ORDERED: ASPI-973 PO (12:52)
--- NOTE | 2017-07-11 15:35 | NUR ---
Discharge Pt dc'd in WC with UA and at 1534. Stable w/o pain or complaints. Thoroughly reviewed catheter care and had patient return demonstrate how to empty and clamp catheter, dress with catheter, and importance of keeping as sterile as possible with hand hygiene, keeping cath below bladder, using stat lock, and lalo care. Reviewed signs/symptoms to report with catheter. Reinforced with written information. Pt and verbalized understanding of instructions and will follow up with urology for appointment and prn. All other discharge instructions reviewed and pt verbalized understanding of meds, follow up, and symptoms to report. All belongings with pt on dc.
--- NOTE | 2017-07-11 18:01 | PCM.DC.MED ---
Discharge Summary Date of Service Jul 11, 2017 Dates of Hospitalization Date of Hospital Admission Jul 04, 2017 at 13:02 Date of Discharge: Jul 11, 2017 Providers: Admitting Physician: Solitario Chan MD Primary Care Physician: Petros Tidwell MD Attending Physician: Miriam Hauser DO Diagnosis at Time of Discharge Diagnosis at Time of Discharge Papillary Urothelial Carcinoma Acute blood loss anemia secondary to Acute hematuria Acute hypotension secondary to acute blood loss anemia Acute Leukocytosis likely secondary to urinary tract infection, resolved Acute bladder mass noted on CT imaging Tobacco dependency Consultations Urology, Dr. Garsia and Dr. Ritter were consulted Procedures XRay, CTs & MRIs CT ABDOMEN AND PELVIS WITH CONTRAST IMPRESSION: Large heterogeneous bladder mass which could represent hematoma however there is superimposed left posterior focus of increased attenuation which is suspicious for enhancing bladder wall mass/malignancy. Recommend further evaluation with cystoscopy. Minimal intrahepatic bile duct dilatation. Please correlate clinically with LFTs. Cholelithiasis. Numerous subcentimeter pancreatic cystic foci, not well evaluated by CT. Recommend further evaluation with dedicated pancreatic protocol MRI after the patient's acute episode has resolved Cystic focus in the right adnexa although this is adjacent to the bladder. Unclear if this represents bladder diverticulum versus right ovarian cystic lesion. Further assessment with pelvic ultrasound in the nonemergent setting could be performed. Approved by: Ki Mcmullen M.D. on 07/04/2017 at 11:03 Brief History Yolanda Sanderson is a 76yoF with past medical history of tobacco dependence and peripheral arterial disease who arrived in the ED with a 2 week history of hematuria. The patient states that at onset of hematuria, she went to the urgent care clinic where she was told her she had a UTI and was given TMP+SMX. After finishing her antibiotics she states that she had significant improvement in her hematuria until 07/04/17 when her urine became frankly bloodly which then triggered her to then return to the UC clinic where they gave her another supply of TMP+SMX. The patient also has developed lower abdominal pain described as sharp and achy and rated at 3-4 out of 10 at its worst. The patient states that she has experienced no increase in pain with urination. The patient had a cyst removed from her bladder twenty years ago without recurrence. The patient also has a smoking history of 51 years. The patient admits to intermittent diarrhea and constipation for the past few months. The denies fever or chills, night sweats, chest pain, shortness of breath, worsening headaches. The patient denies significant weight loss recently. When patient presented in the ED, she was hypotensive, likely secondary to acute blood loss anemia. She was given IV fluids with improvement in BP. In addition, Hemoglobin dropped from 10.2 to 7.6 over several hours around admission. Patient received a total of 3 units PRBCs througout her entire hospital stay with threshold to transfuse if Hgb <8 given her PAD. She was also treated with ceftriaxone 2g daily for 5 days to cover for possible UTI, although urine and blood cultures showed no growth. She received continuous bladder irrigation and blood clots were evacuated prn.Dr. Ritter of Urology took patient to the OR on 07/09/17 for Cystoscopy and clot evacuation as well as Transurethral resection of bladder tumor (over 5 cm). It was noted that surrounding the tumor was a quite dense patch of hypervascularity and telangiectasia. Per recommendations of urology, patient will be discharged to home with barrios catheter and will likely have it for about a week. She will follow up with urology within a week. Pathology results showed papillary urothelial carcinoma. Patient was discharged home in stable condition. Hospital Course Yolanda Sanderson is a 76yoF with past medical history of tobacco dependence and peripheral arterial disease who arrived in the ED with a 2 week history of hematuria that began two weeks ago but has acutely worsened the last 2 days prior to admission. Acute blood loss anemia secondary to Acute hematuria, present on admission, resolving - CT Imaging shows some contrast enhancement which could be consistent with possible mass, given gross hematuria with significant blood loss from a simple urinary tract infection this is likely due to a mass with friable overlying tissue - White blood cell count of 7.5 with no shift, temperature of 36 on admission, pro-calcitonin 0.03 not consistent with overt sepsis - Records from urgent care clinic note the patient was tested for possible UTI with culture resulting in pansensitive Escherichia coli placed on Bactrim DS - Patient was started on Rocephin in the ED, Continue Rocephin 2000 mg daily, Urine cultures pending. Thus far show no growth - Urology was consulted in the ED. This case was discussed extensively with Dr. Garsia who initially saw patient on 07/04/17. Per Urology, Ditropan p.r.n. and Pyridium p.r.n. have been ordered. -Patient underwent continuous bladder irrigation and irrigating the Barrios catheter p.r.n. blood clots, nondraining Barrios, or bloody drainage from the Barrios. Upon discharge, Patient now has an indwelling barrios s/p bladder tumor resection. Barrios has yellow urine - Hemoglobin dropped from 10.2 to 7.6 over several hours around admission. Transfused 2 units PRBCs, hemoglobin improved to 11.5 after transfusion but her symptoms down trended again to 7.6 and a single unit of PRBCs given - Hemoglobin and hematocrit checked every 12 hours. On discharge, H/H remained stable and 10.1/30.3 - Patient typed and screened in ED, held 1 unit PRBCs, transfusion threshold is with hemoglobin less than 8 given history of peripheral arterial disease and family history of coronary artery disease - Dr. Ritter of Urology took patient to the OR on 07/09/17 for Cystoscopy and clot evacuation as well as Transurethral resection of bladder tumor (over 5 cm) . It was noted that surrounding the tumor was a quite dense patch of hypervascularity and telangiectasia -Patient will be discharged to home with barrios catheter and will likely have it for about a week -She will follow up with urology. Pathology results show high grade papillary urothelial carcinoma Acute hypotension secondary to acute blood loss anemia, present on admission, stable - Patient's blood pressure on presentation was 70/29 which improved to 92/54 with 2 L of normal saline IV fluids given in the ED - Patient had lactic acid of 2.9 which corrected with fluids to 1.2 over 7 hours while in the ED this is likely secondary to poor perfusion due to hypotension more so than sepsis - Was started on LR at 100 mils per hour but that has been discontinued - Transfusion protocol described above secondary to acute blood loss anemia Acute Leukocytosis likely secondary to urinary tract infection, resolved -WBC increased to 15.4 after admission while on antibiotics which subsequently down trended to 9 on July 08 -Patient was treated with 2 g ceftriaxone for presumed UTI for 5 days. -investigated possible sources of infection but unlikely -Patient had diarrhea but stool PCR has been negative -no cough, SOB, and lung sounds were clear bilaterally Acute bladder mass noted on CT imaging, present on admission, under evaluation - Patient has a 50 year history of tobacco dependence but does not carry any history of familial cancer - Imaging shows some contrast enhancement which could be consistent with possible mass - Given gross hematuria with significant blood loss from a simple urinary tract infection this is likely due to a mass with friable overlying tissue - Urology was consulted - Dr. Ritter of Urology took patient to OR for cystoscopy and Turbt as described above Tobacco dependency, present on admission, stable - Nicotine patch available when necessary CODE STATUS is DNR/DNI this was discussed with patient's daughter in the room as well as the patient directly Exam Vital Signs (Last) Date Time Temp Pulse Resp B/P Pulse Ox O2 Delivery O2 Flow Rate FiO2 07/11/17 12:17 36.5 79 16 106/55 98 Room Air 07/09/17 14:25 8 Exam General: Patient is lying comfortably on bed, AAOX3, not in acute distress, cooperative and pleasant. HEENT: head normocephalic and atraumatic, PERRLA, EOMI, no scleral icterus, noninjected conjunctiva Neck: neck supple, non-tender, no lymphadenopathy, trachea midline, no JVD CV: regular rate and rhythm, s1 and s2 heard, radial pulses 2+ and equal bilaterally, no rubs, no murmurs, no edema Lungs: Clear to auscultation bilaterally, no wheezes, rales or rhonchi, no increased work of breathing Abdomen: normoactive bowel sounds on 4Q, soft, non-distended, non-tender to palpation, Skin: warm and dry, : barrios catheter in place, with visible gross hematuria Musculoskeletal: 5/5 UE and LE strength bilaterally, full ROM bilaterally Neuro: Grossly neurologically intact, cranial nerves II through XII intact, no dyskinesia, dysmetria, or dysdiadochokinesia noted Psych: Normal mood and affect, appears to have some dementia at baseline Test 07/04/17 07:44 07/04/17 17:36 07/04/17 20:44 07/05/17 03:25 Hemoglobin A1c 5.6% (4.8-5.6) Phosphorus Level 3.2mg/dL (2.5-4.9) Troponin T 0.010ug/L (0.0-0.011) Hold Humphries Top Tube Received (Received) Urine Color Bloody (YELLOW) Urine Appearance Turbid (CLEAR,HAZY) Urine pH 7.0 (5.0-8.0) Urine Specific [place] 1.020 (1.003-1.035) Urine Protein 300mg/dL (NEG,TRACE) Urine Glucose (UA) Negativemg/dL (NEGATIVE) Urine Ketones Tracemg/dL (NEGATIVE) Urine Occult Blood Large (NEGATIVE) Urine Nitrite (NEGATIVE) Urine Bilirubin Negative (NEGATIVE) Urine Urobilinogen Normalmg/dL (NORMAL) Urine Leukocyte Esterase Negative (NEGATIVE) Urine RBC >50/hpf (0-2) Urine WBC 6-10/hpf (0-5) Urine Epithelial Cells Occasional/hpf (NONE-MOD) Urine Crystals None seen (NONE SEEN) Urine Bacteria None/hpf (NONE-FEW) Urine Hyaline Casts None/lpf (NONE) Urine Granular Casts None seen (NONE SEEN) Urine Waxy Casts None seen (NONE SEEN) Urine Red Blood Cell Casts None seen (NONE SEEN) Urine White Blood Cell Casts None seen (NONE SEEN) Urine Mucus None seen (None Seen) Urine Trichomonas None seen (NONE SEEN) Urine Yeast None (NONE SEEN) Urinalysis Comment None Urine Culture Reflexed Indicated Magnesium Level 1.6mg/dL (1.6-2.6) Test 07/08/17 05:02 07/09/17 01:51 07/11/17 03:30 Lactic Acid Level 0.9mmol/L (0.4-2.0) Procalcitonin 0.11ng/mL (0.00-0.08) Prothrombin Time 10.8sec (8.1-12.5) Prothromb Time International Ratio 1.01ratio Activated Partial Thromboplast Time 23.9sec (22.8-33.0) White Blood Count 11.7th/mm3 (3.8-10.1) Red Blood Count 3.29mil/mm3 (3.90-5.20) Hemoglobin 10.1g/dL (12.0-15.6) Hematocrit 30.3% (35.0-46.0) Mean Corpuscular Volume 92.1fL (81-100) Mean Corpuscular Hemoglobin 30.7pg (27.0-35.0) Mean Corpuscular Hemoglobin Concent 33.3% (32.0-37.0) Red Cell Distribution Width 16.4% (12.3-15.4) Platelet Count 243bil/L (150-400) Neutrophils (%) (Auto) 62.7% (40-74) Lymphocytes (%) (Auto) 20.0% (14-46) Monocytes (%) (Auto) 11.8% (4-12) Eosinophils (%) (Auto) 4.2% (0-5) Basophils (%) (Auto) 0.4% (0-3) Sodium Level 139mEq/L (134-144) Potassium Level 4.0mEq/L (3.5-5.2) Chloride Level 106mEq/L (97-108) Carbon Dioxide Level 20mmol/L (18-29) Blood Urea Nitrogen 9mg/dL (8-27) Creatinine 0.50mg/dL (0.57-1.00) Estimat Glomerular Filtration Rate 171mL/min (>59) Glucose Level 79mg/dL (60-99) Calcium Level 9.0mg/dL (8.5-10.1) Total Bilirubin 0.4mg/dL (0.0-1.2) Aspartate Amino Transf (AST/SGOT) 23U/L (0-50) Alanine Aminotransferase (ALT/SGPT) 22U/L (0-32) Alkaline Phosphatase 83U/L (25-165) Total Protein 5.0g/dL (6.4-8.4) Albumin 2.7g/dL (3.4-5.0) Discharge Medications Discharge Medications Aspirin (Aspirin) 81 Mg Tablet 81 MG PO DAILY Prescribed by: Meka SCANLON Multivits-Min/FA/Lycopene/Lut (Centrum Silver Tablet) 1 Each Tablet 1 EACH PO DAILY (Reported) Saccharomyces Boulardii (Digestive Probiotic) 250 Mg Capsule 250 MG PO BID Prescribed by: Meka SCANLON Followup Plan Disposition: Patient discharged to home with home health services in stable condition Follow-up plan Follow-up with Urology in a week. Follow-up with primary care provider in 2 weeks. Discharge Diet: No restrictions Discharge Activity: No restrictions Patient Instructions You came into the emergency room because you are noticing blood in your urine. We did a CT scan which showed that there was a mass in your bladder. We consulted urology, they are the doctors who focus on surgical and medical diseases of the urinary tract system. They suggested that we irrigate the bladder. Throughout your stay, we monitored your blood counts and it dropped low enough that we had to give you a total of 3 units of blood. Urology then decided that they would take you to the operating room and remove the mass. You remained stable after surgery and your blood counts also remained stable. You currently have a barrios catheter in place and will likely keep it for about a week, per recommendations of urology. Home Health nursing will come to your house several days a week to help you manage your barrios catheter. Throughout your hospital stay, we also treated you with antibiotics for a urinary tract infection As we discussed, the pathology results came back and the bladder mass turned out to be papillary urothelial carcinoma. We talked about how urology will discuss further management with you during your appointment. You will follow-up with urology within a week. As for the diarrhea, we are going to stop Alligne and start you on a different probiotic called Florastor Follow-up Provider: Brando Garsia MD Follow-up with PCP in: 1 week Provider: Petros Tidwell MD Follow-up in: 2 weeks Time spent Greater than 35 minutes Attending Statement The patient was seen and examined together with Dr. Huang on 07/11/17 and I have added additional information to the note above. copies to: Petros Tidwell MD; Brando Garsia MD, Alexa N DO Jul 11, 2017 18:01 Miriam Hauser DO Jul 12, 2017 12:17
== END 2017-07-11 15:35 | disposition home health service (06) | DRG 669 ==
LOC: SED 07:17 → PCC 13:02
PROVIDERS: ADMIT Internal Medicine; ATTEND Internal Medicine
PROC: 0T2BX0Z Change Drainage Device in Bladder, External Approach (ICD-10-PCS; 2017-07-04)
PROC: 30233N1 Transfusion of Nonautologous Red Blood Cells into Peripheral Vein, Percutaneous Approach (ICD-10-PCS; 2017-07-05)
PROC: 30233N1 Transfusion of Nonautologous Red Blood Cells into Peripheral Vein, Percutaneous Approach (ICD-10-PCS; 2017-07-08)
PROC: 0TBB8ZZ Excision of Bladder, Via Natural or Artificial Opening Endoscopic (ICD-10-PCS; principal; 2017-07-09 12:30)
DX: C67.9 Malignant neoplasm of bladder, unspecified (principal); N39.0 Urinary tract infection, site not specified; D62 Acute posthemorrhagic anemia; I95.89 Other hypotension; D41.4 Neoplasm of uncertain behavior of bladder; Z79.82 Long term (current) use of aspirin; F17.210 Nicotine dependence, cigarettes, uncomplicated; Z66 Do not resuscitate

== ENCOUNTER 2017-07-17 08:08 | Inpatient (IN) | payer MEDICARE ==
[2017-07-17] VITALS (7 sets, daily range): BP systolic 85–120; BP diastolic 42–65; PULSE 65–76; RESP 14–18; O2SAT 96–100
[~2017-07-17] VITALS: Ht 170.2 cm; Wt 49.9 kg
[~2017-07-17 08:08] MED LIST changes: +ASPI-973 PO; +MULT-1073 PO; -MULT-64 PO; +SACC250C8 PO
[2017-07-17] MEDS ORDERED: 0.9% Sodium Chloride 1,000 ML IV ONE ×2 (08:24→10:25)
[2017-07-17] MEDS ORDERED: Ondansetron 2 mg/mL 2 mL Inj IVPUSH PRN ×2 (08:25→12:20)
--- NOTE | 2017-07-17 08:58 | ED.REPORT ---
HPI-General Illness Date of Service Jul 17, 2017 ED Provider: Az Yeh DO Mrs. Sanderson is a very pleasant 76-year-old female with a history of papillary urethral carcinoma presents to the ED with diarrhea. Patient noted that she has been having diarrhea for the past month. Diarrhea has gotten worse within the last day. Patient has recurrent UTIs due to an indwelling catheter. She was seen at urgent care a month ago and was given antibiotics. UTIs got better but then it came back 2 weeks later where she was given another round of antibiotics. She currently takes probiotics but does not feel like it is any help with the diarrhea. She is currently in no pain. Associated symptoms of palpitations. She denies any dizziness, chest pain, shortness of breath. She was recently inpatient last week for a bladder tumor resection. She is worried because since discharge she has lost 5 pounds. Nursing Notes Stated Complaint: DIARRHEA Chief Complaint: General Complaint Allergies: Coded Allergies: Pork (Verified Allergy, Unknown, 07/17/17) banana (Verified Allergy, Unknown, 07/17/17) peanut (Verified Allergy, Unknown, 07/17/17) shellfish derived (Verified Allergy, Unknown, 07/17/17) tree nut (Verified Allergy, Unknown, 07/17/17) wheat (Verified Allergy, Unknown, 07/17/17) Scheduled Aspirin (Aspirin) 81 Mg Tablet 81 MG PO DAILY Multivits-Min/FA/Lycopene/Lut (Centrum Silver Tablet) 1 Each Tablet 1 EACH PO DAILY Saccharomyces Boulardii (Digestive Probiotic) 250 Mg Capsule 250 MG PO BID General Time Seen by MD: 08:53 Chief Complaint Diarrhea Hx Obtained From: Patient, Spouse Sudden in Onset?: Yes Onset Occurred: More than a week ago... (1 month) Symptom Duration: Constant Severity: Current: No pain currently Associated with: Reports: Vomiting Pertinent Negative: Pt denies other symptoms Pertinent Negative: Relieved by nothing Past Medical History Past Medical History Recent UTI Past Surgical History Bladder cyst removal herniated lumbar disc repair angioplasty bilat legs Smoking History Current Every Day Smoker Social History Other Social History: Ambulatory Status Independent Review of Systems Full Review of Systems Constitutional: Denies: Chills, Fever Respiratory: Denies: Shortness of breath Cardiovascular: Denies: Chest pain GI: Reports: Diarrhea, Nausea, Vomiting, Denies: Abdominal pain, Bloody/tarry stool, Hematemesis Female: Denies: Flank pain, Pelvic pain Complete sys rev & neg: except as marked. Physical Exam Vital Signs Vital Signs Date Time Temp Pulse Resp B/P Pulse Ox O2 Delivery O2 Flow Rate FiO2 07/17/17 11:31 73 16 94/51 99 Room Air 07/17/17 10:15 72 15 85/42 99 Room Air 07/17/17 09:42 65 14 108/46 100 Room Air 07/17/17 08:12 36.5 74 14 120/60 100 Room Air Head / Eyes: Atraumatic, Normocephalic, PERRL Neck: Supple, Non-tender, Full range of motion Respiratory: Breath sounds normal, Clear to auscultation, No respiratory distress Cardiovascular: Regular rate & rhythm, Heart sounds normal, Intact distal pulses Abdomen / GI: Soft, Non-tender, No guarding, No rebound, No distention Back: No CVA tenderness Lymphatic: No lymphadenopathy Skin: Warm, Dry, No cyanosis Neurologic: Alert, Oriented, Nonfocal Psychiatric: Mood/affect normal, Behavior normal, Normal thought content Lower Ext Edema: Positive: Bilateral 1+, Pitting Interpretation & Diagnostics Lab Results Interpretation Result Diagram: 07/17/17 0920 07/17/17 0920 Test 07/17/17 09:20 07/17/17 10:24 07/17/17 10:45 White Blood Count 13.7th/mm3 (3.8-10.1) Red Blood Count 3.64mil/mm3 (3.90-5.20) Hemoglobin 10.9g/dL (12.0-15.6) Hematocrit 33.8% (35.0-46.0) Mean Corpuscular Volume 92.9fL (81-100) Mean Corpuscular Hemoglobin 29.9pg (27.0-35.0) Mean Corpuscular Hemoglobin Concent 32.2% (32.0-37.0) Red Cell Distribution Width 15.2% (12.3-15.4) Platelet Count 363bil/L (150-400) Neutrophils (%) (Auto) 79.4% (40-74) Lymphocytes (%) (Auto) 14.3% (14-46) Monocytes (%) (Auto) 5.0% (4-12) Eosinophils (%) (Auto) 0.5% (0-5) Basophils (%) (Auto) 0.5% (0-3) Urinalysis Comment None Sodium Level 137mEq/L (134-144) Potassium Level 4.4mEq/L (3.5-5.2) Chloride Level 101mEq/L (97-108) Carbon Dioxide Level 22mmol/L (18-29) Blood Urea Nitrogen 11mg/dL (8-27) Creatinine 0.70mg/dL (0.57-1.00) Estimat Glomerular Filtration Rate 116mL/min (>59) Glucose Level 82mg/dL (60-99) Calcium Level 9.6mg/dL (8.5-10.1) Magnesium Level 1.9mg/dL (1.6-2.6) Total Bilirubin 0.6mg/dL (0.0-1.2) Aspartate Amino Transf (AST/SGOT) 25U/L (0-50) Alanine Aminotransferase (ALT/SGPT) 29U/L (0-32) Alkaline Phosphatase 130U/L (25-165) Total Protein 6.4g/dL (6.4-8.4) Albumin 3.7g/dL (3.4-5.0) Lipase 95U/L (13-60) Lactic Acid Level 1.4mmol/L (0.4-2.0) Hold Urine Received (Received) ECG Interpretation ECG Interpretation: Sinus rhythm at a rate of 63 bpm. atrial premature complexes. Right bundle branch block. No signs of ischemia. No significant changes compared to previous EKG on 07/04/2017. Time: 09:35 Re-Eval/Medical Decision Med Decision/Clinical Course Yolanda is a 76-year-old female with a one-month history of diarrhea worse within the last day. Recent history of recurrent UTIs and antibiotic use ordered a stool culture to rule out C. difficile. Patient currently denies all other symptoms. CBC showed an elevated white blood cell count. With her indwelling catheter, it is possible that she still has a UTI. During her visit, she also became hypotensive with a BP systolic in the 80s. We were unable to maintain her blood pressure even with fluid resuscitation. Reexamination was done at that time. Patient noted that she actually felt better. She was alert and oriented, with no change in mental status. Skin was dry and warm. Denies chest pain or shortness of breath. Time of Eval: 12:19 Re-Evaluation/Progress Note: Discussed results and plan for admit. patient understands and agrees to plan. All questions were addressed. Consultation : Referral / Consult Name: Dahiana Reinoso MD Consulted With: Hospitalist Call Returned at: 12:04 Mountain Services Manager: Agrees with eval, Agrees with plan, Accepts admit Counseled Regarding: Diagnosis, Lab results, Need for admission Discharge & Departure Primary Impression: Hypotension Hypotension type: unspecified hypotension type Qualified Code: I95.9 - Hypotension, unspecified Additional Impressions: UTI (urinary tract infection) Urinary tract infection type: catheter-associated UTI Indwelling urinary catheter type: indwelling urethral catheter Encounter type: initial encounter Qualified Code: T83.511A - Infection and inflammatory reaction due to indwelling urethral catheter, initial encounter Diarrhea Diarrhea type: unspecified type Qualified Code: R19.7 - Diarrhea, unspecified Disposition: ADMITTED TO HOSPITAL Discharge Condition All VS Reviewed: Yes Condition: Stable Patient Instructions: Acute Diarrhea (ED), Hypotension (ED) Additional Instructions: Today in the ED her blood pressure dropped to the 80s systolic. We were unable to raise her blood pressure after giving fluids. Admitted to the hospital for further management. Referrals: Petros Tidwell MD (PCP) Attending Statement The patient was seen and examined together with Dr. Esteban on 07/17/17 and I have added additional information to the note above. Aida Esteban DO Jul 17, 2017 08:58 Mavis Coulter Jul 17, 2017 12:20 Az Yeh DO Jul 17, 2017 12:55 Calcium Level 9.6mg/dL (8.5-10.1) Magnesium Level 1.9mg/dL (1.6-2.6) Total Bilirubin 0.6mg/dL (0.0-1.2) Aspartate Amino Transf (AST/SGOT) 25U/L (0-50) Alanine Aminotransferase (ALT/SGPT) 29U/L (0-32) Alkaline Phosphatase 130U/L (25-165) Total Protein 6.4g/dL (6.4-8.4) Albumin 3.7g/dL (3.4-5.0) Lipase 95U/L (13-60) Lactic Acid Level 1.4mmol/L (0.4-2.0) Hold Urine Received (Received) ECG Interpretation ECG Interpretation: Sinus rhythm at a rate of 63 bpm. atrial premature complexes. Right bundle branch block. No signs of ischemia. No significant changes compared to previous EKG on 07/04/2017. Time: 09:35 Re-Eval/Medical Decision Med Decision/Clinical Course Yolanda is a 76-year-old female with a one-month history of diarrhea worse within the last day. Recent history of recurrent UTIs and antibiotic use ordered a stool culture to rule out C. difficile. Patient currently denies all other symptoms. CBC showed an elevated white blood cell count. With her indwelling catheter, it is possible that she still has a UTI. During her visit, she also became hypotensive with a BP systolic in the 80s. We were unable to maintain her blood pressure even with fluid resuscitation. Reexamination was done at that time. Patient noted that she actually felt better. She was alert and oriented, with no change in mental status. Skin was dry and warm. Denies chest pain or shortness of breath. Time of Eval: 12:19 Re-Evaluation/Progress Note: Discussed results and plan for admit. patient understands and agrees to plan. All questions were addressed. Consultation : Referral / Consult Name: Dahiana Reinoso MD Consulted With: Hospitalist Call Returned at: 12:04 Mountain Services Manager: Agrees with eval, Agrees with plan, Accepts admit Counseled Regarding: Diagnosis, Lab results, Need for admission Discharge & Departure Primary Impression: Hypotension Hypotension type: unspecified hypotension type Qualified Code: I95.9 - Hypotension, unspecified Additional Impressions: UTI (urinary tract infection) Urinary tract infection type: catheter-associated UTI Indwelling urinary catheter type: indwelling urethral catheter Encounter type: initial encounter Qualified Code: T83.511A - Infection and inflammatory reaction due to indwelling urethral catheter, initial encounter Diarrhea Diarrhea type: unspecified type Qualified Code: R19.7 - Diarrhea, unspecified Disposition: ADMITTED TO HOSPITAL Discharge Condition All VS Reviewed: Yes Condition: Stable Patient Instructions: Acute Diarrhea (ED), Hypotension (ED) Additional Instructions: Today in the ED her blood pressure dropped to the 80s systolic. We were unable to raise her blood pressure after giving fluids. Admitted to the hospital for further management. Referrals: Petros Tidwell MD (PCP) Aida Esteban 26, 2017 08:58 Mavis Coulter Jul 17, 2017 12:20
[2017-07-17 09:30] LABS: BASOPHILS % (AUTO) 0.5 % (0-3); EOSINOPHILS % (AUTO) 0.5 % (0-5); Mean Corpuscular Hemoglobin 29.9 pg (27.0-35.0); Mean Corpuscular Volume 92.9 fL (81-100); NEUTROPHILS % (AUTO) 79.4 % (40-74); Platelet Count 363 bil/L (150-400)
[2017-07-17 09:50] LABS: Magnesium 1.9 mg/dL (1.6-2.6)
[2017-07-17 09:59] LABS: APPEARANCE,URINE HAZY (CLEAR,HAZY); COLOR,URINE STRAW (YELLOW); OCCULT BLOOD,URINE LARGE (NEGATIVE)
[2017-07-17 10:00] LABS: UROBILINOGEN,URINE NORMAL (NORMAL); YEAST,URINE FEW (NONE SEEN)
--- NOTE | 2017-07-17 11:59 | DRSVH ---
PROCEDURE: CT ABDOMEN AND PELVIS WITH CONTRAST ([id number]) INDICATIONS: hypotension, diarrhea TECHNIQUE: After the administration of intravenous contrast, 5 mm thick sections acquired from the diaphragm to the symphysis. 5 mm coronal and sagittal reformats were acquired. For radiation dose reduction, the following was used: automated exposure control, adjustment of mA and/or kV according to patient jose koo. COMPARISON: [facility], CT, CT ABD PELVIS W CON, 07/04/2017, 11:11. FINDINGS: Image quality: Diagnostic. ABDOMEN: Lung bases: Lung bases are clear. There may be emphysematous changes within the lung bases. There is mild scarring within the posterior lung bases versus focal atelectasis. Heart size is normal. Solid organs: There is a focal area of low attenuation present involving the lateral segment of the left hepatic lobe along the falciform ligament, compatible with a focal area of fatty infiltration. Mild. Portal edema is noted. Numerous gallstones are present within the gallbladder. The common bi le duct measures within normal limits for the patient's age at approximately 6 mm in diameter. The s pleen, pancreas and adrenals are unchanged. Diffuse enlargement of the left adrenal gland is similar to the prior exam. There is a 5 mm calculus present within the left renal pelvis near the vesicoure teral junction, which is new since the prior examination (image 23, series 2). Small cysts are evide nt within the bilateral kidneys additional nonobstructing renal calculi are present. No left-sided h ydronephrosis is evident. Peritoneum and bowel: Has a small hiatal hernia. Otherwise, stomach and duodenum are unremarkable. Multiple borderline fluid-filled small bowel loops within the left hemiabdomen are present measuring up to 3 cm in diameter. Scattered fluid levels are present. The colon is relatively decompressed. However, air and stool are seen within the colon. The appendix is well-visualized and normal. Dista l colonic diverticulosis is present without surrounding inflammation to suggest acute diverticulitis. No free fluid, loculated fluid collection or free air is evident. No significant ventral hernias a re identified. Nodes and vessels: No retroperitoneal or mesenteric adenopathy by size criteria. Aorta and inferior vena cava are normal in size. Extensive atherosclerosis of the abdominal aorta and iliac vessels is evident. There is mild ectasia of the lower abdominal aorta. Bones: Prominent degenerative changes of the lumbar spine are similar to the previous exam. No acute compression deformities are identified. There is a compression deformity evident involving the T12 vertebral body, which is unchanged since the prior study. PELVIS: Genitourinary: There is a Ramos catheter identified within the urinary bladder. Previously seen het erogeneous high attenuation material no longer as evident within the bladder. There is a small to mo derate amount of air contained within the bladder. No significant lateral thickening is identified. No dilatation of the ureters is evident. Miscellaneous: No inguinal hernias or adenopathy. No free fluid, loculated fluid collection or free air is evident. Bones: No suspicious bony lesions. No vertebral body compression fractures. IMPRESSION: 1. Interval change in position of one of the left renal calculi (measuring 5mm), now located within the left renal pelvis without hydronephrosis. This is of uncertain clinical significance. (Addition al nonobstructing renal calculi are noted.) 2. Mild dilatation of multiple left-sided small bowel loops may be related to focal ileus. Superimp osed enteritis is difficult to exclude. No complete bowel obstruction. 3. Cholelithiasis. 4. Previously seen heterogeneous debris within the urinary bladder is no longer evident, probably re presenting hemorrhage on the prior study. Dictated by: Joaquín Powell M.D. on 07/17/2017 at 10:37 Approved by: Joaquín Powell M.D. on 07/17/2017 at 10:57
[2017-07-17] MEDS ORDERED: 0.9% Sodium Chloride 1,000 ML IV SCH (12:16)
[2017-07-17] MEDS ORDERED: Alum-Mag Hydrox-Simeth 30 mL Suspension PO PRN (12:20)
--- NOTE | 2017-07-17 12:55 | PCM.HPMED ---
Subjective Date of Service Jul 17, 2017 Primary Provider: Admitting Physician: Primary Care Physician: Petros Tidwell MD Attending Physician: Chief Complaint: Persistent watery diarrhea History of Present Illness: 76-year-old female with recent dx of bladder tumor s/p TURBT on 07/[address]Sandra Ritter due to gross hematuria, no other significant medical problems presented with persistent diarrhea From last hopsitalization, Patient was admitted with gross hematuria, underwent TURBT, she also had acute blood loss anemia given tumor, had transfusion. pt was treated for UTI with 5days of ceftriaxone. Pt was discharged with indwelling barrios cath. Patient stated that, even when she was on the hospital, noted that stool PCR was negative. pt stated that since she left hospital, pt had similar light brown color diarrhea 3-5times, last night pt also has some retching, pt denied having abdominal pain, never had endoscopy or colonoscopy in the past. pt also stated that "my taste bud tastes so bad with solid food", but tolerated more soft, chicken noodle, denied having any swallow difficulty. pt stated that she had this diarrhea problem since Last September, pt used to be constipated all the time, but it turned into diarrhea since then. Pt didn't seek any medical help for diarrhea, not see by GI doctor ED VS 94/51-120/.60, 74, 14, afebrile, 100% on RA, pt received 1.5liter NS, BP still maintained 90s, stool PCR sent, one dose of Imodium given. CT abd showed non-obstructing renal stone, mild dilatation of multiple left-sided SB loops, suggestive of ileus or enteritis. Of note, from last hospitalization, pt also had hypotensive episode, which was thought to be related to anemia, improved with fluid resuscitation and transfusion. 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 family reported that pt was intermittently anxious, asking for medication. Review of Systems: Pertinent positives as noted in history of present illness. All other systems were reviewed and are negative Allergies Coded Allergies: Pork (Verified Allergy, Unknown, 07/04/17) banana (Verified Allergy, Unknown, 07/04/17) peanut (Verified Allergy, Unknown, 07/04/17) shellfish derived (Verified Allergy, Unknown, 07/04/17) tree nut (Verified Allergy, Unknown, 07/04/17) wheat (Verified Allergy, Unknown, 07/04/17) Home Medications Aspirin (Aspirin) 81 Mg Tablet 81 MG PO DAILY Multivits-Min/FA/Lycopene/Lut (Centrum Silver Tablet) 1 Each Tablet 1 EACH PO DAILY Saccharomyces Boulardii (Digestive Probiotic) 250 Mg Capsule 250 MG PO BID PMH PM recently found bladder tumor, resected Peripheral arterial disease Cataracts in right eye Tobacco Dependence Anxiety Surgical History Bladder cyst removal in herniated lumbar disc repair in angioplasty bilateral legs at [facility] in ' TURBT on 07/10/17 Social History Hx Alcohol Use: No Hx Substance Use: No Hx Tobacco Use: Yes Smoking Status: Current Every Day Smoker Exam Vital Signs Vital Sign - Last Date Time Temp Pulse Resp B/P Pulse Ox O2 Delivery O2 Flow Rate FiO2 07/17/17 11:31 73 16 94/51 99 Room Air 07/17/17 08:12 36.5 Exam NAD, comfortably laying down on the bed no JVD, mildly dry, no LAD RRR, nl s1, s2 no mrg CTAB, no w,c S,ND,NT,normoactive BS+ warm, trace edema up to ankle bilat, pulses 2/2 Lab and Diagnostics Result Diagram: 07/17/17 0920 07/17/17 0920 Assessment & Plan 76-year-old female with recent dx of bladder tumor s/p TURBT on 07/[address]Sandra Ritter due to gross hematuria, no other significant medical problems presented with persistent diarrhea Acute, active Acute on chronic watery diarrhea, POA, mildly hypovolemic, recent stool study was neg. CT abd showed possible lieus vs enteritis, unlikely partial SBO. pt had recent abx exposure [id number], wbc is new with poly80%, possible infectious , especially c.diff. although exam is fairly benign. UA shows pyuria but no bacteria, possible given indwelling barrios. -awaits repeat stool PCR -continue IVF 2liters, followed by 100cc/hr NS -awaits UCX -will consider add vancomycin po based on stool study hypotension, POA, BP down to 80/40, no endorgan damages, MS at baseline, lactate unremarkable, h/h unchanged from prior. -closely trend BP, IVF as needed, target MAP>65, -if any signs of end organ failure, will consider pressor, Chronic, stable anxiety, will try antivan 1mg po prn, recent bladder tumor, s/p TURBT, continue indwelling barrios, consider change it if suspicion for UTI is high, FU in Uro clinic on Sunday. dispo:Patient will be admitted with inpatient status with expectation of inpatient therapy for more than 2 midnights diet:general dvt ppx:LMWH Full code Time spent 65min Dahiana Reinoso MD Jul 17, 2017 12:55
[2017-07-17 13:23] LABS: APPEARANCE,URINE HAZY (CLEAR,HAZY); COLOR,URINE STRAW (YELLOW); OCCULT BLOOD,URINE LARGE (NEGATIVE); UROBILINOGEN,URINE NORMAL (NORMAL)
[2017-07-17 13:25] LABS: YEAST,URINE MANY (NONE SEEN)
[2017-07-17] MEDS ORDERED: LORazepam 1 mg Tablet PO PRN (13:25)
[2017-07-17] MEDS: 0.9% Sodium Chloride 1,000 ML IV SCH (15:11)
--- NOTE | 2017-07-17 17:35 | NUR ---
Admit to [facility] Pt. arrived on unit at 1400 in stable condition. Able to ambulate to bed from [facility]. Steady gait. Ramos catheter draining to gravity. Denies chest pain, SOB, N/V. Pt. on RA. BP 92/52. Denies hypotensive symptoms. Pt. ordered a lunch of soup and pudding. Tolerated this well.
--- NOTE | 2017-07-17 22:54 | NUR ---
Nutrition P: Pt states, "Nothing tastes right. I've lost 6 pounds in two weeks" I: Encouraged caloric snacks. Given ice cream sherbert and glass of juice E: Pt at 25% of snack. She is currently asleep
[2017-07-18] VITALS (7 sets, daily range): BP systolic 88–110; BP diastolic 46–57; PULSE 65–82; RESP 14–18; O2SAT 95–99
[2017-07-18] MEDS: 0.9% Sodium Chloride 1,000 ML IV SCH ×3 (00:03→20:20)
[2017-07-18 06:53] LABS: BASOPHILS % (AUTO) 0.7 % (0-3); EOSINOPHILS % (AUTO) 2.2 % (0-5); MONOCYTES % (AUTO) 7.3 % (4-12); Mean Corpuscular Hemoglobin 30.1 pg (27.0-35.0); Mean Corpuscular Volume 94.3 fL (81-100); NEUTROPHILS % (AUTO) 69.6 % (40-74); Platelet Count 279 bil/L (150-400)
[2017-07-18 07:50] LABS: Magnesium 1.7 mg/dL (1.6-2.6)
--- NOTE | 2017-07-18 10:12 | NUR ---
Social Work-initial assessment/ readiness for discharge/multidisciplinary rounds Data:See initial assessment. Pt is a 76 y/o female who was admitted on 07/17/17 for UTI per H&P. Pt's insurance is [facility] and PCP is Leigh Ann Greene DO. EMR reviewed. Pt's readmission score is 2.Pt is a readmission just discharging home with HH services through [facility] for RN. Pt also has barrios catheter from home she has had for two weeks. Pt's support person is her Solitario Sanderson [phone]. SW met with pt to discuss discharge planning, SW role explained. Pt is alert and oriented x3. Pt resides at home with her Solitario in a single level home where she remains independent with ADLs. Pt uses a fww at baseline and drives occasionally. 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 Pt has completed DPOA/ advanced directive, pt confirms this has been completed, SW encouraged a copy to be brought in. Pt has current services with [facility], no MD orders received at this time. SW to await MD orders to discus with [facility]. Pt confirms her will provide transport home. SW provided pt with a discharge planning checklist and encouraged pt to call with any questions, phone number provided on white board in room. SW will continue to follow. Assessment:Pt who would benefit from HH. Plan:Pt to discharge home when medically stable via POV. Pt will need resume HH orders at discharge. No MD orders received at this time, SW to await orders to discuss with [facility]. SW will continue to follow. SREEDHAR Ying Addendum: 07/18/17 at 1019 by CHRISTAL FULLER Amended: Links added.
--- NOTE | 2017-07-18 16:22 | NUR ---
Social Work-readiness for discharge/multidisciplinary rounds: Data:EMR reviewed.Pt is on day 1 of hospitalization for UTI per H&P. Pt is not medically stable anticipate 1-2 more days. MD order received for resume HH. JIMMY spoke with Alexis Motta with [facility] who confirms pt is open with RN, access given. Pt will need resume HH orders at discharge. Pt's to provide transport home. SW will continue to follow. Assessment:Pt who is independent at baseline. Plan:Pt to discharge home when medically stable via POV. Pt will need resume HH-RN orders at discharge. SW will continue to follow. SREEDHAR Ying
--- NOTE | 2017-07-18 17:14 | PCM.PNMED ---
Subjective Date of Service Jul 18, 2017 Subjective pt feels better, eating better with good appeite, no BM since she had imodium still hypotensive down to 88/52, on IVF. denied abd pain. Exam Vital Signs Vital Sign - Last Date Time Temp Pulse Resp B/P Pulse Ox O2 Delivery O2 Flow Rate FiO2 07/18/17 14:39 36.9 82 18 109/57 99 Room Air Intake and Output 07/17/17 07/17/17 07/18/17 Cumulative From/Thru 15:00 23:00 07:00 07/17/17 08:12 - 07/18/17 05:54 Intake Total 2000 ml 700 ml 1241 ml 3941 ml Output Total 1000 ml 600 ml 1600 ml Balance 2000 ml -300 ml 641 ml 2341 ml Intake Oral 400 ml 100 ml 500 ml IV Total 2000 ml 300 ml 1141 ml 3441 ml Output Urine Total 1000 ml 600 ml 1600 ml # Bowel Movements 0 0 Exam NAD, comfortably laying down on the bed no JVD, mildly dry, no LAD RRR, nl s1, s2 no mrg CTAB, no w,c S,ND,NT,normoactive BS+ warm, trace edema up to ankle bilat, pulses 2/2 IVs and Medications Medications Reviewed: Medications were reviewed in detail Lab and Diagnostics Result Diagram: 07/18/1762407/18/17624 Assessment & Plan 76-year-old female with recent dx of bladder tumor s/p TURBT on 07/[address]Sandra Ritter due to gross hematuria, no other significant medical problems presented with persistent diarrhea Acute, active Acute on chronic watery diarrhea, POA, likely irritable bowel syndrome. pt was mildly hypovolemic, recent stool study was neg. CT abd showed possible lieus vs enteritis, unlikely partial SBO. pt had recent abx exposure [id number], wbc is new with poly80%, suspected infectious, especially c.diff. However, stool PCR again negative. -exam continues to be fairly benign, sx improving. -awaits repeat stool PCR -continue IVF 2liters, followed by 100cc/hr NS, consider stop tomorrow -refer to GI for colonscopy outpatient if diarrhea persists -continue Imodium as needed Candiuria, seen in UA, UCX, expected given indwelling barrios, unlikely real infection. hypotension, POA, BP down to 80/40, no endorgan damages, MS at baseline, lactate unremarkable, h/h unchanged from prior. -still remained low, asymptomatic, closely trend BP, IVF as needed, target MAP> 65, -if any signs of end organ failure, will consider pressor, Chronic, stable anxiety, will try antivan 1mg po prn, recent bladder tumor, s/p TURBT, continue indwelling barrios, consider change it if suspicion for UTI is high, FU in Uro clinic on Sunday. dispo:likely tomorrow home, HH, diet:general dvt ppx:LMWH Full code VTE Mechanical Devices: Intermittant Pneumatic CD Time spent 35min Dahiana Reinoso MD Jul 18, 2017 17:14
--- NOTE | 2017-07-18 19:27 | NUR ---
Dehydration: Patient continues to recieve NS at 100ml/hr . Her indwelling catheter has pale yellow urine flowing to gravity,(less concentrated than earlier today. Patients B/P is 110/51 now. Patient has been drinking increased fluids throughout the day.
[2017-07-19 00:19] VITALS: BP 111/72; PULSE 69; RESP 16; O2SAT 96
[2017-07-19 04:39] VITALS: BP 106/64; PULSE 70; RESP 16; O2SAT 94
--- NOTE | 2017-07-19 04:43 | NUR ---
BM/BP Pt is worried about not having a BM since she had Imodium. She normally drinks prune juice to move her bowels; offered but pt would like to talk to the doctor first so she wouldn't get diarrhea again. denies abdominal discomfort. last BP was 106/64. denies dizziness or lightheadedness. hourly rounding done.
[2017-07-19] MEDS: 0.9% Sodium Chloride 1,000 ML IV SCH (05:06)
[2017-07-19 06:18] VITALS: PULSE 70
[2017-07-19 08:00] VITALS: PULSE 70
[2017-07-19 09:17] VITALS: BP 104/62; PULSE 71; RESP 16; O2SAT 97
--- NOTE | 2017-07-19 10:56 | PCM.DIMED ---
Discharge Instructions Date of Service Jul 19, 2017 Dates of Hospitalization Jul 17, 2017 at 13:23 Discharge Diagnosis Discharge Diagnosis 1. Acute diarrhea, resolved. 2. Anemia, unclear etiology. Prefers conservative management. 3. Candiuria, stable 4. hypotension, improved. 5. anxiety, stable. 6. Bladder tumor, s/p TURBT, continue indwelling barrios until follow up Sunday with Dr Garsia Diet Discharge Diet: No restrictions Activity Discharge Activity: No restrictions Call your provider Call your provider for: Excessive diarrhea Patient Instructions Patient Instructions See Dr. Garsia as scheduled on July 20. You will keep your catheter in until follow-up with Dr. Garsia tomorrow. Dr. Greene will recheck your anemia laboratories in a week or so to see how this is looking. Follow-up Provider: Leigh Ann Greene DO Follow-up with PCP in: 1 week Anselmo Gong MD Jul 19, 2017 10:56
[2017-07-19] MEDS ORDERED: PANT40TA2 PO (10:57)
--- NOTE | 2017-07-19 11:03 | NUR ---
Social Work-discharge: Data:EMR Reviewed. Pt is on day 2 of hospitalization for UTI per H&P. Pt is medically stable for discharge. Pt is open with Maria E QUILES-RN, resume orders obtained, SW updated Alexis with [facility] of discharge, orders given. SW updated pt and and they are agreeable to plan. All updated and agreeable to plan. Assessment:pt who would benefit from resume HH. Plan:Pt to discharge home today via POV. Kasey QUILES-RN orders given to Maria E QU[facility]. All updated and agreeable to plan. SREEDHAR Ying
--- NOTE | 2017-07-19 12:09 | NUR ---
Discharge Pt was provided education on diagnosis, new meds, and future care. Spouse was also present for teaching. Pt understands when her follow up appts are. Pt and spouse demonstrated understanding of teaching. Tele leads were removed, IV was removed. Pt left with all personal belongings (including script and discharge packet) and was escorted down to vehicle in a wheel chair by a staff member.
--- NOTE | 2017-07-19 16:47 | PCM.DC.MED ---
Discharge Summary Date of Service Jul 19, 2017 Dates of Hospitalization Date of Hospital Admission Jul 17, 2017 at 13:23 Date of Discharge: Jul 19, 2017 Providers: Admitting Physician: Dahiana Reinoso MD Primary Care Physician: Petros Tidwell MD Attending Physician: Anselmo Macdonald MD Diagnosis at Time of Discharge Diagnosis at Time of Discharge 1. Acute diarrhea, resolved. 2. Anemia, unclear etiology. Prefers conservative management. 3. Candiuria, stable 4. hypotension, improved. 5. anxiety, stable. 6. Bladder tumor, s/p TURBT, continue indwelling barrios until follow up Sunday with Dr Ady Abreu None Procedures Other Diagnostics Urine culture had Kathy, felt to be colonization. Brief History 76-year-old female with recent dx of bladder tumor s/p TURBT on 07/[address]Sandra Ritter due to gross hematuria, no other significant medical problems presented with persistent diarrhea From last hopsitalization, Patient was admitted with gross hematuria, underwent TURBT, she also had acute blood loss anemia given tumor, had transfusion. pt was treated for UTI with 5days of ceftriaxone. Pt was discharged with indwelling barrios cath. Patient stated that, even when she was on the hospital, noted that stool PCR was negative. pt stated that since she left hospital, pt had similar light brown color diarrhea 3-5times, last night pt also has some retching, pt denied having abdominal pain, never had endoscopy or colonoscopy in the past. pt also stated that "my taste bud tastes so bad with solid food", but tolerated more soft, chicken noodle, denied having any swallow difficulty. pt stated that she had this diarrhea problem since Last September, pt used to be constipated all the time, but it turned into diarrhea since then. Pt didn't seek any medical help for diarrhea, not see by GI doctor ED VS 94/51-120/.60, 74, 14, afebrile, 100% on RA, pt received 1.5liter NS, BP still maintained 90s, stool PCR sent, one dose of Imodium given. CT abd showed non-obstructing renal stone, mild dilatation of multiple left-sided SB loops, suggestive of ileus or enteritis. Of note, from last hospitalization, pt also had hypotensive episode, which was thought to be related to anemia, improved with fluid resuscitation and transfusion. 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 family reported that pt was intermittently anxious, asking for medication. Hospital Course 1. Acute diarrhea, resolved. The patient was admitted for acute on chronic diarrhea. She was treated with Lomotil and fluid resuscitated and this is improved. In fact she had no bowel movement for the last one half days while in the hospital. 2. Anemia, unclear etiology. Prefers conservative management. She did develop mild anemia. We discussed this in the day of discharge her hematocrit had gone from 30 to 26. She denies any rectal bleeding. She has no transfusions twice in the past but is not sure what these before. She states she has never had a colonoscopy would decline this. She is not sure that she would consent to an endoscopy. She does have intermittent abdominal pain. Because it's possible that acid could explain both her mild blood loss anemia as well as her diarrhea we discussed the possibility of conservative management with Protonix once a day and following her hematocrit. She prefers this plan. 3. Candiuria, stable. This is being followed as colonization. 4. hypotension, improved. This improved with fluid resuscitation consistent with probable volume depletion. 5. anxiety, stable. This remained stable on the hospital. 6. Bladder tumor, s/p TURBT, continue indwelling barrios until follow up Sunday with Dr Garsia She has an appointment scheduled for this Sunday which is 1 day after discharge to have her catheter removed by Dr. Garsia in urology. She'll keep this appointment. Exam Vital Signs (Last) Date Time Temp Pulse Resp B/P Pulse Ox O2 Delivery O2 Flow Rate FiO2 07/19/17 09:17 36.9 71 16 104/62 97 Room Air Exam The patient was seen and examined on the day of discharge. She was felt to be medically stable for discharge home. Test 07/17/17 10:24 07/17/17 10:45 07/18/17 06:25 07/19/17 05:48 Lactic Acid Level 1.4mmol/L (0.4-2.0) Urine Color Straw (YELLOW) Urine Appearance Hazy (CLEAR,HAZY) Urine pH 6.0 (5.0-8.0) Urine Specific [place] 1.005 (1.003-1.035) Urine Protein 30mg/dL (NEG,TRACE) Urine Glucose (UA) Negativemg/dL (NEGATIVE) Urine Ketones 15mg/dL (NEGATIVE) Urine Occult Blood Large (NEGATIVE) Urine Nitrite Negative (NEGATIVE) Urine Bilirubin Negative (NEGATIVE) Urine Urobilinogen Normalmg/dL (NORMAL) Urine Leukocyte Esterase Large (NEGATIVE) Urine RBC 0-2/hpf (0-2) Urine WBC 11-50/hpf (0-5) Urine Epithelial Cells Occasional/hpf (NONE-MOD) Urine Crystals Oxalic acid crystals (NONE Urine Bacteria Few/hpf (NONE-FEW) Urine Hyaline Casts None/lpf (NONE) Urine Granular Casts None seen (NONE SEEN) Urine Waxy Casts None seen (NONE SEEN) Urine Red Blood Cell Casts None seen (NONE SEEN) Urine White Blood Cell Casts None seen (NONE SEEN) Urine Mucus None seen (None Seen) Urine Trichomonas None seen (NONE SEEN) Urine Yeast Many (NONE SEEN) Urinalysis Comment None Urine Culture Reflexed Indicated Hold Urine Received (Received) White Blood Count 9.0th/mm3 (3.8-10.1) Red Blood Count 2.79mil/mm3 (3.90-5.20) Hemoglobin 8.4g/dL (12.0-15.6) Hematocrit 26.3% (35.0-46.0) Mean Corpuscular Volume 94.3fL (81-100) Mean Corpuscular Hemoglobin 30.1pg (27.0-35.0) Mean Corpuscular Hemoglobin Concent 31.9% (32.0-37.0) Red Cell Distribution Width 15.1% (12.3-15.4) Platelet Count 279bil/L (150-400) Neutrophils (%) (Auto) 69.6% (40-74) Lymphocytes (%) (Auto) 20.0% (14-46) Monocytes (%) (Auto) 7.3% (4-12) Eosinophils (%) (Auto) 2.2% (0-5) Basophils (%) (Auto) 0.7% (0-3) Magnesium Level 1.7mg/dL (1.6-2.6) Lipase 73U/L (13-60) Sodium Level 137mEq/L (134-144) Potassium Level 3.6mEq/L (3.5-5.2) Chloride Level 108mEq/L (97-108) Carbon Dioxide Level 20mmol/L (18-29) Blood Urea Nitrogen 4mg/dL (8-27) Creatinine 0.46mg/dL (0.57-1.00) Estimat Glomerular Filtration Rate 188mL/min (>59) Glucose Level 85mg/dL (60-99) Calcium Level 7.7mg/dL (8.5-10.1) Total Bilirubin 0.2mg/dL (0.0-1.2) Aspartate Amino Transf (AST/SGOT) 15U/L (0-50) Alanine Aminotransferase (ALT/SGPT) 17U/L (0-32) Alkaline Phosphatase 91U/L (25-165) Total Protein 4.0g/dL (6.4-8.4) Albumin 2.5g/dL (3.4-5.0) Discharge Medications Discharge Medications Aspirin (Aspirin) 81 Mg Tablet 81 MG PO DAILY Prescribed by: Meka SCANLON Multivits-Min/FA/Lycopene/Lut (Centrum Silver Tablet) 1 Each Tablet 1 EACH PO DAILY (Reported) Pantoprazole DR (Protonix) 40 Mg Tablet 40 MG PO DAILY Prescribed by: ANSELMO MACDONALD MD Saccharomyces Boulardii (Digestive Probiotic) 250 Mg Capsule 250 MG PO BID Prescribed by: Meka SCANLON Followup Plan Disposition: Home Discharge Diet: No restrictions Discharge Activity: No restrictions Patient Instructions See Dr. Garsia as scheduled on July 20. You will keep your catheter in until follow-up with Dr. Garsia tomorrow. Dr. Greene will recheck your anemia laboratories in a week or so to see how this is looking. Follow-up Provider: Leigh Ann Greene DO Follow-up with PCP in: 1 week Time spent 35 minutes Anselmo Macdonald MD Jul 19, 2017 16:47
== END 2017-07-19 11:51 | disposition home health service (06) | DRG 392 ==
LOC: SED 08:08 → MPC 13:23
PROVIDERS: ADMIT Internal Medicine; ATTEND Hospitalist
DX: K58.0 Irritable bowel syndrome with diarrhea (principal); Z87.440 Personal history of urinary (tract) infections; Z79.82 Long term (current) use of aspirin; F17.210 Nicotine dependence, cigarettes, uncomplicated; I95.9 Hypotension, unspecified; F41.9 Anxiety disorder, unspecified; D64.9 Anemia, unspecified